=== PATIENT | female | born 1950 | race Caucasian/White ===

== ENCOUNTER 2017-09-08 21:03 | Inpatient (IN) | payer MEDICARE, OTHER ==
[2017-09-08] MEDS ORDERED: Nitroglycerin 0.4 MG TAB (25 Tab Bottle) ONE (21:45)
[2017-09-08 21:50] LABS: #Basophils 0.1 thou/uL (0.0-0.2); #Lymphocytes 2.7 thou/uL (1.20-3.40); #Monocytes 0.6 thou/uL (0.11-0.59); #Neutrophils 4.1 thou/uL (1.40-6.50); %Eosinophils 0.1 % (0.0-10.0); %Lymphocytes 36.2 % (21.0-51.0); %Monocytes 7.9 % (0.0-10.0); %Neutrophils 54.9 % (42.0-75.0); Mean Corpuscular HGB CONC 32.7 g/dL (32.0-36.0); Mean Corpuscular Volume 88.9 fl (81.0-99.0); Mean Platelet Volume 6.9 fL (7.4-10.4); Platelet Count 319 thou/uL (130-400); RBC Distribution Width 13.4 % (11.5-14.5); Red Blood Cell (RBC) Count 4.13 mill/uL (4.20-5.40); White Blood Cell (WBC) Count 7.5 thou/uL (4.8-10.8)
--- NOTE | 2017-09-08 22:05 | RAD ---
PORTABLE CHEST: HISTORY: Chest pain and pressure. COMPARISON: 05/10/2008 FINDINGS: Heart size is enlarged. There are postop sternotomy changes. The lungs are clear of any infiltrativ e process. IMPRESSION: Cardiomegaly. No acute findings. POS: VERONICA
[2017-09-08 22:11] LABS: ALT (SGPT) 16 U/L (8-55); AST (SGOT) 40 U/L (5-34); Alkaline Phosphatase 77 U/L (40-150); Anion Gap 13 mmol/L (10-20); BUN (Urea Nitrogen) 17 mg/dL (9.8-20.1); Bilirubin, Total 0.2 mg/dL (0.2-1.2); CK (CPK) 148 U/L (29-168); Calc. Creatinine Clearance 0 mL/min (70-130); Calcium 10.4 mg/dL (7.8-10.44); Carbon Dioxide 26 mmol/L (23-31); Chloride 105 mmol/L (98-107); Estimated GFR-MDRD 67; Globulin 3.5 g/dL (2.4-3.5); Glucose 99 mg/dL (80-115); Lipase 31 U/L (8-78); Potassium 3.5 mmol/L (3.5-5.1); Protein, Total 7.5 g/dL (6.0-8.3); Sodium 140 mmol/L (136-145)
[2017-09-08 22:13] LABS: CKMB 2.5 ng/mL (0-6.6); Troponin I 0.015 ng/mL (< 0.028)
[2017-09-09] MEDS ORDERED: Aspirin 325 MG TAB PO SCH (00:45)
[2017-09-09 00:47] VITALS: BMI 37.4
[2017-09-09 01:05] LABS: Troponin I 0.034 ng/mL (< 0.028)
[2017-09-09] MEDS ORDERED: Calcium Carbonate 500 MG ChewTAB PO PRN (03:28)
[2017-09-09] MEDS ORDERED: Dextrose 5% in Water 1,000 ML IV PRN (03:28)
[2017-09-09] MEDS ORDERED: Ondansetron ODT 4 MG TAB PO PRN (03:28)
[2017-09-09] MEDS ORDERED: Ondansetron HCl/PF 4 MG/2 ML Vial IVP PRN (03:28)
[2017-09-09] MEDS ORDERED: Senokot 8.6 MG TAB PO PRN (03:28)
[2017-09-09] MEDS ORDERED: Milk Of Magnesia 30 ML UDCUP PO PRN (03:28)
[2017-09-09] MEDS ORDERED: Dextrose 50% Abboject 50 ML SYRINGE SLOW IVP PRN (03:28)
[2017-09-09] MEDS: Levothyroxine Sodium 75 MCG TAB PO SCH (04:06)
--- NOTE | 2017-09-09 04:27 | HP ---
DATE OF ADMISSION: 09/09/2017 PRIMARY CARE PHYSICIAN: Dr. Chand at [facility]. PRIMARY CURAM DEVELOPER: Dr. Figueroa. CHIEF COMPLAINT: Chest discomfort. HISTORY OF PRESENT ILLNESS: Patient is a 66-year-old female with coronary artery disease, status pos t CABG and stent placement, hypertension, diabetes mellitus type 2, and hyperlipidemia presented to [facility] emergency room with chest discomfort that started this morning when she woke up. The chest pain w as substernal, constant, moderate in intensity associated with nausea and lightheadedness. No palpit ations, syncope, diaphoresis reported. The pain was radiating to her left shoulder. The pain improv ed after 2 nitroglycerin by EMS. She denies recent immobilization, travel, or sick contacts. No cou gh or heartburn reported. She follows Dr. Figueroa. PAST MEDICAL HISTORY: 1. Hypertension. 2. Diabetes mellitus, type 2. 3. Coronary artery disease, status post CABG and stent placement. She is currently followed by Dr. Figueroa. 4. Reactive airway disease. 5. Migraine headaches. 6. Hyperlipidemia. 7. Hypothyroidism. Patient has not been taking levothyroxine for the last 2 weeks per patient repor . 8. Obesity with a BMI 37.4. 9. Bipolar disorder. PAST SURGICAL HISTORY: 1. CABG. 2. Coronary stent placement. 3. Hysterectomy. 4. Appendectomy. 5. Cholecystectomy. ALLERGIES: Patient is allergic to MORPHINE. CURRENT HOME MEDICATIONS: Patient does not remember any of her home medications. We will try to obt ain the accurate list of medications from her PCP. SOCIAL HISTORY: Patient currently lives at home. She is . No alcohol, tobacco, or drug use . 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 She is FULL [employer], makes her own decision with help of her family. FAMILY HISTORY: Negative for premature coronary artery disease. REVIEW OF SYSTEMS: The following complete review of systems was negative, unless otherwise mentioned in the HPI or below: Constitutional: Weight loss or gain, ability to conduct usual activities. Sk in: Rash, itching. Eyes: Double vision, pain. ENT/Mouth: Nose bleeding, neck stiffness, pain, te nderness. Cardiovascular: Palpitations, dyspnea on exertion, orthopnea. Respiratory: Shortness of breath, wheezing, cough, hemoptysis, fever, or night sweats. Gastrointestinal: Poor appetite, abdo kam pain, heartburn, nausea, vomiting, constipation, or diarrhea. Genitourinary: Urgency, frequen cy, dysuria, nocturia. Musculoskeletal: Pain, swelling. Neurologic/Psychiatric: Anxiety, depressi on. Allergy/Immunologic: Skin rash, bleeding tendency. PHYSICAL EXAMINATION: VITAL SIGNS: In the emergency room showed temperature 98.3, respirations 18, pulse rate of 87, blood pressure of 181/98 with O2 saturation 95% on room air. GENERAL: A 66-year-old female in no apparent distress, chest discomfort has improved. HEENT: Head atraumatic, normocephalic. Sclerae anicteric. Moist mucous membranes. No oral lesion. NECK: Supple, no JVD appreciated. No carotid bruit. LUNGS: Clear to auscultation bilaterally. HEART: S1, S2 present. Regular rate and rhythm. Healed midline scar from previous CABG. ABDOMEN: Soft, nontender, bowel sounds present. There is mild epigastric tenderness which is chroni c per patient report. EXTREMITIES: Trace edema in bilateral lower extremities. SKIN: Warm and dry. LYMPH NODES: No palpable lymph nodes in the neck. PERIPHERAL VASCULAR: Radial pulses palpable bilaterally. MUSCULOSKELETAL: No joint swelling or tenderness. LABORATORY FINDINGS: 1. CBC showed WBC 7.5 with hemoglobin 12, platelet 319. 2. Troponin was 0.015. Repeat troponin was 0.034. 3. BNP was 48.6, creatinine 0.84, sodium was 140 with potassium 3.5. 4. EKG by my review showed sinus rhythm with some nonspecific ST-T wave changes. 5. Chest x-ray by my review was negative for infiltrate or edema. There was cardiomegaly. IMPRESSION: 1. Chest discomfort associated with nausea, radiating to her left shoulder. The chest discomfort re solved after nitroglycerin. Patient will be monitored on telemetry unit. Cardiology will be consult ed. Please note that patient has discontinued taking aspirin which will be restarted. We will mariana nue Plavix, which she takes at home. We will confirm all other home medications. 2. Hypertension, uncontrolled. Probably secondary to medication noncompliance. She had an echocard iogram [address] Figueroa's office. We will try to obtain records. We will add p.r.n. antih ypertensives. 3. Diabetes mellitus, type 2. We will start insulin sliding scale and confirm other home medication s. 4. Hypothyroidism. Patient states that she has not taken her thyroid medications over the last 2 we eks. We will resume once dosages are confirmed. 5. Bipolar disorder. 6. Obesity with a BMI 37.4. 7. Hyperlipidemia. 8. Coronary artery disease, status post coronary artery bypass graft and stent placement. Plan of care was discussed with the patient in detail. She stated understanding.
[2017-09-09 04:34] LABS: Troponin I 0.027 ng/mL (< 0.028)
[2017-09-09] MEDS: Carbidopa/Levodopa 25-100 mg Tablet PO SCH ×3 (08:30→21:08)
[2017-09-09] MEDS: Metoprolol Tartrate 50 MG TAB PO SCH (08:30)
[2017-09-09] MEDS: Hydrochlorothiazide 25 MG TAB PO SCH (08:30)
[2017-09-09] MEDS: Potassium Chloride 10 MEQ TAB PO SCH (08:30)
[2017-09-09] MEDS: lamoTRIgine 100 MG TAB PO SCH (08:30)
[2017-09-09] MEDS: Venlafaxine HCl XR 150 MG CAP PO SCH (08:31)
[2017-09-09] MEDS: Atorvastatin Calcium 40 MG TAB PO SCH (08:31)
[2017-09-09] MEDS: Aripiprazole 10 MG TAB PO SCH (08:31)
[2017-09-09] MEDS: Lisinopril 20 MG TAB PO SCH (08:31)
[2017-09-09] MEDS: Aspirin 81 mg Enteric Coated Tablet PO SCH (08:31)
[2017-09-09] MEDS: Fenofibrate Nanocrystallized 145 MG TAB PO SCH (08:32)
[2017-09-09] MEDS: Docusate 100 MG CAP PO SCH ×2 (08:32→21:09)
[2017-09-09] MEDS ORDERED: Famotidine 20 MG TAB PO SCH (09:00)
[2017-09-09] MEDS ORDERED: Isosorbide Dinitrate 20 MG TAB PO SCH (09:00)
[2017-09-09] MEDS ORDERED: Nitroglycerin 0.4 MG TAB (25 Tab Bottle) ONE (10:04)
[2017-09-09] MEDS ORDERED: Nitroglycerin 2% Ointment 1 INCH/1 GM Packet ONE (10:04)
[2017-09-09] MEDS ORDERED: Metoprolol Tartrate 5 MG/5 ML VIAL ONE ×2 (10:05)
[2017-09-09] MEDS: Nitroglycerin 0.4 MG TAB (25 Tab Bottle) PO PRN ×3 (10:08→10:23)
[2017-09-09] MEDS: Clopidogrel Bisulfate 75 MG TAB PO SCH (10:25)
[2017-09-09] MEDS: Acetaminophen 325 MG TAB PO PRN ×2 (10:25→14:01)
[2017-09-09 11:18] LABS: CKMB 1.9 ng/mL (0-6.6); Troponin I 0.015 ng/mL (< 0.028)
[2017-09-09] MEDS ORDERED: Nitroglycerin 50 MG/250 ML BOT 250 ML ONE (11:25)
--- NOTE | 2017-09-09 11:55 | CON ---
DATE OF CONSULTATION: 09/09/2017 HISTORY: The patient is a 66-year-old woman who presents with chest discomfort. The patient has a l kenyatta history of coronary artery disease. She is status post coronary bypass surgery on 2 occasions in 2000 and 2009. The patient is followed by Dr. Ulysses Figueroa. She was in her usual state of health wh en she woke up with substernal chest discomfort. When she woke with substernal chest discomfort, the chest discomfort radiated into her jaw and her left arm. This chest discomfort was improved with ni tro, but never resolved. The patient states she has continued to have chest discomfort. PAST MEDICAL HISTORY: 1. Coronary artery disease. 2. Hypertension. 3. Diabetes mellitus. 4. Chronic obstructive pulmonary disease. 5. Hyperlipidemia. 6. Parkinson's disease. PAST SURGICAL HISTORY: Coronary bypass surgery, history of appendectomy, cholecystectomy, hysterecto my. ALLERGIES: She is allergic to MORPHINE. MEDICATIONS: See nursing list. SOCIAL HISTORY: Nonsmoker. PHYSICAL EXAMINATION: GENERAL: This is an obese woman. VITAL SIGNS: Blood pressure 190/80. NECK: Showed no jugular venous. LUNGS: Clear to auscultation. HEART: Regular rate and rhythm, normal S1, S2. ABDOMEN: Distended. EXTREMITIES: Showed trace edema. SKIN: Warm and dry. NEUROLOGIC: Nonfocal. VASCULAR: Nonfocal. LABORATORY DATA: Sodium 140, potassium 3.5, chloride 105, bicarbonate 26, BUN 17, creatinine 0.84. Troponin was 0.027. BNP is 48. EKG revealed normal sinus rhythm with a normal ECG. IMPRESSION: 1. Unstable angina. 2. Hypertensive crisis. 3. History of coronary bypass surgery on 2 occasions. 4. Hypertension. This patient presents with unstable angina and hypertensive crisis. We will treat with IV nitroglyce rin. We will follow this patient with you through her hospitalization. This is a critical care note. Time is 40 minutes.
--- NOTE | 2017-09-09 12:57 | CON ---
DATE OF CONSULTATION: 09/09/2017 This is a 66-year-old female who presented to the hospital with chest pain of several hours duration. Anterior chest pain with radiation to the left neck. She had persistent pain this morning on observa tion unit. She was transferred to the ICU after apparently Cardiology saw her. She was given 2 nitroglycerin tablets. She is going to be started on IV nitroglycerin. The patient has never smoked. There is a strong family history of coronary disease. She denied any coughing or wheezing. PAST MEDICAL HISTORY: 1. Pertinent for diabetes. 2. Hypertension. 3. Coronary artery disease. 4. Hypothyroidism. 5. Parkinson disease. 6. Bipolar disorder. PAST SURGICAL HISTORY: She has had CABG done x2. She has a cardiac stent placed. Hysterectomy, rosetta endix, gallbladder. ALLERGIES: MORPHINE. MEDICATIONS: A list of medicine from home includes metformin 1000 mg twice a day, Lamotrigine 200 mg once a day, venlafaxine 300 mg once a day, Artane 1 mg twice a day, Ranexa 1000 mg twice a day, Prot noble 40, metoprolol 1 a day, Synthroid 75 a day. ISMO 30 a day, insulin Levemir 60 units twice a day , Plavix 75, carbidopa 2 tablets 3 times a day, calcium 80 and Abilify 5 mg a day. 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 REVIEW OF SYSTEMS: Otherwise, 10 point negative. PHYSICAL EXAMINATION: VITAL SIGNS: Sats are 93 on 3 liters, pulse 76, temperature 98, blood pressure 180/90. CHEST: Decreased breath sounds without any wheezing. CARDIAC: Normal S1, S2, no gallops. ABDOMEN: Soft, no masses. LABORATORY AND X-RAY FINDINGS: Glucose 186. Troponin was 0.03. EKG as noted shows some tachycardia. Some T-wave changes of lateral ischemic changes. Chest x-ray, no acute infiltrates. Previous sternotomy scar. White count of 7.5, H&H 12 and 36. Creatinine is normal. IMPRESSION: 1. Chest pain. 2. Coronary artery disease. 3. Status post coronary artery bypass graft. 4. Status post stent. 5. Parkinson's disease. 6. Depression. 7. Bipolar disorder. 8. Nonsmoker. 9. Hypothyroidism. PLAN: At this stage, await input from Cardiology. Pulmonary will follow while in the [facility]. Pulmona ry cobb nothing to offer. We will follow while in the ICU. This is a consultation note, 70 minutes, 50% spent in direct patient care.
--- NOTE | 2017-09-09 14:37 | EKG ---
Test Reason : Blood Pressure : / mmHG Vent. Rate : 078 BPM Atrial Rate : 078 BPM P-R Int : 118 ms QRS Dur : 080 ms QT Int : 394 ms P-R-T Axes : 000 030 085 degrees QTc Int : 449 ms Sinus rhythm with Premature atrial complexes Nonspecific T wave abnormality Abnormal ECG When compared with ECG of 08-SEP-2017 21:17, (Unconfirmed) No significant change was found Confirmed by DR. Lucy QUINTANA ([id number]) on 09/09/2017 2:37:24 PM Referred By: TUNG Confirmed By:DR. Lucy QIUNTANA
--- NOTE | 2017-09-09 14:41 | PDOC.PN ---
- Subjective Encounter Start Date: 09/09/17 Encounter Start Time: 07:45 Subjective: c/o chest pain, has sob+ -: no palp or fever -: has dry cough+ - Objective MAR Reviewed: Yes Vital Signs & Weight: Vital Signs (12 hours) Temp 09/09/17 12:00 97.9 F Most Recent Monitor Data Heart Rate from ECG 67 NIBP 144/68 NIBP BP-Mean 96 Respiration from ECG 21 SpO2 99 Result Diagrams: 09/08/17 21:25 09/08/17 21:25 Phys Exam - Physical Examination HEENT: PERRLA, moist MMs Neck: no JVD, supple Respiratory: no wheezing, no rales rhonchi+ Cardiovascular: RRR, no significant murmur Gastrointestinal: soft, non-tender, no distention, positive bowel sounds Musculoskeletal: no edema, pulses present Neurological: non-focal, moves all 4 limbs Psychiatric: normal affect, A&O x 3 Dx/Plan (1) Unstable angina Status: Acute (2) CAD (coronary artery disease) Code(s): I25.10 - ATHSCL HEART DISEASE OF [place] CORONARY ARTERY W/O ANG PCTRS Status: Chronic Qualifiers: Coronary Disease-Associated Artery/Lesion type: bypass graft [place] vs. transplanted heart: [place] heart Associated angina: with unstable angina Qualified Code(s): I25.700 - Atherosclerosis of coronary artery bypass graft(s) , unspecified, with unstable angina pectoris (3) HTN (hypertension) Code(s): I10 - ESSENTIAL (PRIMARY) HYPERTENSION Status: Chronic Qualifiers: Hypertension type: essential hypertension Qualified Code(s): I10 - Essential (primary) hypertension (4) Dyslipidemia Code(s): E78.5 - HYPERLIPIDEMIA, UNSPECIFIED Status: Chronic (5) Obesity (BMI 30-39.9) Code(s): E66.9 - OBESITY, UNSPECIFIED Status: Chronic (6) Parkinson disease Code(s): G20 - PARKINSON'S DISEASE Status: Chronic - Plan is on nitroglycerin drip -: morphine prn -: on asp, plavix, lipitor, tricor, toprol, ranexa, lisinopril -: sinemet, abilify, lamictal and effexor -: tx to ccu, await prior records from 's office * . Review of Systems - Medications/Allergies Allergies/Adverse Reactions: Allergies Allergy/AdvReac Type Severity Reaction Status Date / Time morphine Allergy Verified 09/09/17 00:50 Medications: Current Medications Acetaminophen (Tylenol) 650 mg PO Q4H PRN PRN Reason: Fever or Mild Pain Last Admin: 09/09/17 14:01 Dose: 650 mg Aripiprazole (Abilify) 5 mg PO DAILY [facility] Last Admin: 09/09/17 08:31 Dose: 5 mg Aspirin (Ecotrin) 81 mg PO DAILY [facility] Last Admin: 09/09/17 08:31 Dose: 81 mg Atorvastatin Calcium (Lipitor) 80 mg PO DAILY [facility] Last Admin: 09/09/17 08:31 Dose: 80 mg Calcium Carbonate (Tums) 1,000 mg PO Q4H PRN PRN Reason: Heartburn or Indigestion Carbidopa/Levodopa (Sinemet 25-100) 2 tab PO TID [facility] Last Admin: 09/09/17 14:01 Dose: 2 tab Clopidogrel Bisulfate (Plavix) 75 mg PO DAILY [facility] Last Admin: 09/09/17 10:25 Dose: 75 mg Dextrose/Water (Dextrose 50%) 25 gm SLOW IVP PRN PRN PRN Reason: Hypoglycemia Docusate Sodium (Colace) 100 mg PO BID [facility] Last Admin: 09/09/17 08:32 Dose: 100 mg Fenofibrate (Tricor) 145 mg PO DAILY [facility] Last Admin: 09/09/17 08:32 Dose: 145 mg Glucagon (Glucagon) 1 mg IM PRN PRN PRN Reason: Hypoglycemia Hydrochlorothiazide (Hydrochlorothiazide) 25 mg PO DAILY [facility] Last Admin: 09/09/17 08:30 Dose: 25 mg Dextrose/Water (D5w) 1,000 mls @ 0 mls/hr IV .Q0M PRN; As Directed PRN Reason: Hypoglycemia Nitroglycerin/Dextrose (Nitroglycerin 50 Mg/250 Ml Bot) 250 mls @ 0 mls/hr IVPB INF [facility]; As Directed PRN Reason: Protocol Insulin Human Regular (Humulin R) 0 units SC .MODERATE SLIDING SC PRN PRN Reason: Moderate Correctional Scale Insulin Human Regular (Humulin R) 0 units SC .BEDTIME SLIDING SC PRN PRN Reason: Bedtime Correctional Scale Lamotrigine (Lamictal) 200 mg PO DAILY [facility] Last Admin: 09/09/17 08:30 Dose: 200 mg Levothyroxine Sodium (Synthroid) 75 mcg PO 0600 [facility] Last Admin: 09/09/17 04:06 Dose: 75 mcg Lisinopril (Zestril) 20 mg PO DAILY [facility] Last Admin: 09/09/17 08:31 Dose: 20 mg Magnesium Hydroxide (Milk Of Magnesium) 30 ml PO DAILYPRN PRN PRN Reason: Constipation Metoprolol Tartrate (Lopressor) 50 mg PO DAILY [facility] Last Admin: 09/09/17 08:30 Dose: 50 mg Nitroglycerin (Nitrostat) 0.4 mg PO Q5MIN PRN PRN Reason: Chest Pain Last Admin: 09/09/17 10:23 Dose: 0.4 mg Ondansetron HCl (Zofran Odt) 4 mg PO Q6H PRN PRN Reason: Nausea/Vomiting Last Admin: 09/09/17 10:32 Dose: 4 mg Ondansetron HCl (Zofran) 4 mg IVP Q6H PRN PRN Reason: Nausea/Vomiting Pantoprazole Sodium (Protonix) 40 mg PO DAILY [facility] Last Admin: 09/09/17 08:32 Dose: 40 mg Trihexyphenidyl [ (Artane] 1 Mg) 0 each PO BID [facility] Potassium Chloride (Klor-Con 10) 10 meq PO DAILY [facility] Last Admin: 09/09/17 08:30 Dose: 10 meq Ranolazine (Ranexa) 1,000 mg PO BID [facility] Last Admin: 09/09/17 08:31 Dose: 1,000 mg Senna (Senokot) 2 tab PO HSPRN PRN PRN Reason: Constipation Sodium Chloride (Flush - Normal Saline) 10 ml IVF PRN PRN PRN Reason: Saline Flush Venlafaxine HCl (Effexor Xr) 300 mg PO DAILY [facility] Last Admin: 09/09/17 08:31 Dose: 300 mg
[2017-09-09] MEDS: Insulin Regular 300 UNITS/3 ML VIAL SC PRN ×2 (16:38→21:09)
[2017-09-10] MEDS: Acetaminophen 325 MG TAB PO PRN ×2 (01:05→05:04)
[2017-09-10] MEDS: Nitroglycerin 50 MG/250 ML BOT 250 ML IVPB SCH ×2 (04:49→17:19)
[2017-09-10] MEDS: Levothyroxine Sodium 75 MCG TAB PO SCH (05:04)
--- NOTE | 2017-09-10 05:30 | PRG ---
DATE OF SERVICE: 09/10/2017 She is awake, alert, responsive. No chest pain. She has some back pain. PHYSICAL EXAMINATION: VITAL SIGNS: Blood pressure is better 125/67, sats 90 on room air, respirations 18. CHEST: Chest revealed no wheezing or crackles. CARDIAC: Normal S1, S2, no gallops. ABDOMEN: Soft, no masses. IMPRESSION: 1. Coronary artery disease. 2. Chest pain. 3. History of Parkinson disease. 4. Hypertension. Pulmonary Critical Care will follow while in the ICU. Await input from Cardiology. Otherwise, suppo rtive care.
[2017-09-10] MEDS: Insulin Regular 300 UNITS/3 ML VIAL SC PRN ×4 (06:18→20:49)
[2017-09-10] MEDS: Atorvastatin Calcium 40 MG TAB PO SCH (09:28)
[2017-09-10] MEDS: Aripiprazole 10 MG TAB PO SCH (09:28)
[2017-09-10] MEDS: Carbidopa/Levodopa 25-100 mg Tablet PO SCH ×3 (09:28→20:30)
[2017-09-10] MEDS: Docusate 100 MG CAP PO SCH ×2 (09:29→20:30)
[2017-09-10] MEDS: ALPRAZolam 0.25 MG TAB PO SCH ×3 (09:29→20:30)
[2017-09-10] MEDS: Aspirin 81 mg Enteric Coated Tablet PO SCH (09:29)
[2017-09-10] MEDS: Lisinopril 20 MG TAB PO SCH (09:29)
[2017-09-10] MEDS: Hydrochlorothiazide 25 MG TAB PO SCH (09:30)
[2017-09-10] MEDS: Potassium Chloride 10 MEQ TAB PO SCH (09:30)
[2017-09-10] MEDS: Metoprolol Tartrate 50 MG TAB PO SCH (09:30)
[2017-09-10] MEDS: Clopidogrel Bisulfate 75 MG TAB PO SCH (09:30)
[2017-09-10] MEDS: lamoTRIgine 100 MG TAB PO SCH (09:37)
[2017-09-10] MEDS: Venlafaxine HCl XR 150 MG CAP PO SCH (09:43)
[2017-09-10] MEDS: Fenofibrate Nanocrystallized 145 MG TAB PO SCH (09:45)
--- NOTE | 2017-09-10 12:03 | PDOC.PN ---
- Subjective Encounter Start Date: 09/10/17 Encounter Start Time: 11:00 Subjective: no sob, feels better -: is on nitro drip and comfortable with no pain - Objective MAR Reviewed: Yes Vital Signs & Weight: Vital Signs (12 hours) Temp Pulse Resp BP Pulse Ox 09/10/17 09:29 141/85 H 09/10/17 08:00 98.2 F 84 23 H 99 09/10/17 04:00 98.2 F 09/10/17 03:36 98 Most Recent Monitor Data Heart Rate from ECG 82 NIBP 145/67 NIBP BP-Mean 120 Respiration from ECG 20 SpO2 97 I&O: 09/09/17 09/10/17 09/11/17 06:59 06:59 06:59 Intake Total 1186 150 Output Total 800 0 Balance 386 150 Result Diagrams: 09/08/17 21:25 09/08/17 21:25 Additional Labs: Accuchecks 09/10/17 09/10/17 09/09/17 11:20 06:19 21:04 POC Glucose 256 H 187 H 252 H 09/09/17 16:38 POC Glucose 183 H Phys Exam - Physical Examination HEENT: PERRLA, moist MMs Neck: no JVD, supple Respiratory: no wheezing, no rales Cardiovascular: RRR, no significant murmur Gastrointestinal: soft, non-tender, positive bowel sounds Musculoskeletal: no edema, pulses present Neurological: non-focal, moves all 4 limbs Psychiatric: normal affect, A&O x 3 Dx/Plan (1) Unstable angina Status: Acute Comment: resolving (2) CAD (coronary artery disease) Code(s): I25.10 - ATHSCL HEART DISEASE OF [place] CORONARY ARTERY W/O ANG PCTRS Status: Chronic Qualifiers: Coronary Disease-Associated Artery/Lesion type: bypass graft [place] vs. transplanted heart: [place] heart Associated angina: with unstable angina Qualified Code(s): I25.700 - Atherosclerosis of coronary artery bypass graft(s) , unspecified, with unstable angina pectoris (3) HTN (hypertension) Code(s): I10 - ESSENTIAL (PRIMARY) HYPERTENSION Status: Chronic Qualifiers: Hypertension type: essential hypertension Qualified Code(s): I10 - Essential (primary) hypertension (4) Dyslipidemia Code(s): E78.5 - HYPERLIPIDEMIA, UNSPECIFIED Status: Chronic (5) Obesity (BMI 30-39.9) Code(s): E66.9 - OBESITY, UNSPECIFIED Status: Chronic (6) Parkinson disease Code(s): G20 - PARKINSON'S DISEASE Status: Chronic - Plan still awaiting records from 's office, d/w RN -: is on nitro drip, may dc or taper if ok with -: continue asp, plavix, lipitor, tricor, ranexa, lisinopril and lopressor -: nebs prn, oob to chair as tolerated * . Review of Systems - Medications/Allergies Allergies/Adverse Reactions: Allergies Allergy/AdvReac Type Severity Reaction Status Date / Time morphine Allergy Verified 09/09/17 00:50 Medications: Current Medications Acetaminophen (Tylenol) 650 mg PO Q4H PRN PRN Reason: Fever or Mild Pain Last Admin: 09/10/17 05:04 Dose: 650 mg Alprazolam (Xanax) 0.25 mg PO TID [facility] Last Admin: 09/10/17 09:29 Dose: 0.25 mg Aripiprazole (Abilify) 5 mg PO DAILY [facility] Last Admin: 09/10/17 09:28 Dose: 5 mg Aspirin (Ecotrin) 81 mg PO DAILY [facility] Last Admin: 09/10/17 09:29 Dose: 81 mg Atorvastatin Calcium (Lipitor) 80 mg PO DAILY [facility] Last Admin: 09/10/17 09:28 Dose: 80 mg Calcium Carbonate (Tums) 1,000 mg PO Q4H PRN PRN Reason: Heartburn or Indigestion Carbidopa/Levodopa (Sinemet 25-100) 2 tab PO TID [facility] Last Admin: 09/10/17 09:28 Dose: 2 tab Clopidogrel Bisulfate (Plavix) 75 mg PO DAILY [facility] Last Admin: 09/10/17 09:30 Dose: 75 mg Dextrose/Water (Dextrose 50%) 25 gm SLOW IVP PRN PRN PRN Reason: Hypoglycemia Docusate Sodium (Colace) 100 mg PO BID [facility] Last Admin: 09/10/17 09:29 Dose: 100 mg Fenofibrate (Tricor) 145 mg PO DAILY [facility] Last Admin: 09/10/17 09:45 Dose: 145 mg Glucagon (Glucagon) 1 mg IM PRN PRN PRN Reason: Hypoglycemia Hydrochlorothiazide (Hydrochlorothiazide) 25 mg PO DAILY [facility] Last Admin: 09/10/17 09:30 Dose: 25 mg Dextrose/Water (D5w) 1,000 mls @ 0 mls/hr IV .Q0M PRN; As Directed PRN Reason: Hypoglycemia Nitroglycerin/Dextrose (Nitroglycerin 50 Mg/250 Ml Bot) 250 mls @ 0 mls/hr IVPB INF [facility]; As Directed PRN Reason: Protocol Last Admin: 09/10/17 04:49 Dose: 250 mls Insulin Human Regular (Humulin R) 0 units SC .MODERATE SLIDING SC PRN PRN Reason: Moderate Correctional Scale Last Admin: 09/10/17 11:21 Dose: 6 unit Insulin Human Regular (Humulin R) 0 units SC .BEDTIME SLIDING SC PRN PRN Reason: Bedtime Correctional Scale Last Admin: 09/09/17 21:09 Dose: 3 unit Isosorbide Mononitrate (Imdur) 60 mg PO DAILY [facility] Last Admin: 09/10/17 09:28 Dose: 60 mg Lamotrigine (Lamictal) 200 mg PO DAILY [facility] Last Admin: 09/10/17 09:37 Dose: 200 mg Levothyroxine Sodium (Synthroid) 75 mcg PO 0600 [facility] Last Admin: 09/10/17 05:04 Dose: 75 mcg Lisinopril (Zestril) 20 mg PO DAILY [facility] Last Admin: 09/10/17 09:29 Dose: 20 mg Magnesium Hydroxide (Milk Of Magnesium) 30 ml PO DAILYPRN PRN PRN Reason: Constipation Metoprolol Tartrate (Lopressor) 50 mg PO DAILY [facility] Last Admin: 09/10/17 09:30 Dose: 50 mg Nitroglycerin (Nitrostat) 0.4 mg PO Q5MIN PRN PRN Reason: Chest Pain Last Admin: 09/09/17 10:23 Dose: 0.4 mg Ondansetron HCl (Zofran Odt) 4 mg PO Q6H PRN PRN Reason: Nausea/Vomiting Last Admin: 09/09/17 10:32 Dose: 4 mg Ondansetron HCl (Zofran) 4 mg IVP Q6H PRN PRN Reason: Nausea/Vomiting Pantoprazole Sodium (Protonix) 40 mg PO DAILY [facility] Last Admin: 09/10/17 09:29 Dose: 40 mg Trihexyphenidyl [ (Artane] 1 Mg) 0 each PO BID [facility] Potassium Chloride (Klor-Con 10) 10 meq PO DAILY [facility] Last Admin: 09/10/17 09:30 Dose: 10 meq Ranolazine (Ranexa) 1,000 mg PO BID [facility] Last Admin: 09/10/17 09:45 Dose: 1,000 mg Senna (Senokot) 2 tab PO HSPRN PRN PRN Reason: Constipation Sodium Chloride (Flush - Normal Saline) 10 ml IVF PRN PRN PRN Reason: Saline Flush Venlafaxine HCl (Effexor Xr) 300 mg PO DAILY [facility] Last Admin: 09/10/17 09:43 Dose: 300 mg
[2017-09-11] MEDS: Levothyroxine Sodium 75 MCG TAB PO SCH (05:21)
[2017-09-11] MEDS: Insulin Regular 300 UNITS/3 ML VIAL SC PRN ×3 (05:28→18:17)
[2017-09-11] MEDS: Aspirin 81 mg Enteric Coated Tablet PO SCH (08:23)
[2017-09-11] MEDS: Docusate 100 MG CAP PO SCH ×2 (08:23→20:54)
[2017-09-11] MEDS: Clopidogrel Bisulfate 75 MG TAB PO SCH (08:23)
[2017-09-11] MEDS: Aripiprazole 10 MG TAB PO SCH (08:24)
[2017-09-11] MEDS: Hydrochlorothiazide 25 MG TAB PO SCH (08:24)
[2017-09-11] MEDS: Atorvastatin Calcium 40 MG TAB PO SCH (08:24)
[2017-09-11] MEDS: Carbidopa/Levodopa 25-100 mg Tablet PO SCH ×3 (08:25→20:53)
[2017-09-11] MEDS: Potassium Chloride 10 MEQ TAB PO SCH (08:25)
[2017-09-11] MEDS: Metoprolol Tartrate 50 MG TAB PO SCH (08:26)
[2017-09-11] MEDS: Lisinopril 20 MG TAB PO SCH (08:26)
[2017-09-11] MEDS: ALPRAZolam 0.25 MG TAB PO SCH ×3 (08:27→20:53)
[2017-09-11] MEDS: lamoTRIgine 100 MG TAB PO SCH (08:27)
[2017-09-11] MEDS: Venlafaxine HCl XR 150 MG CAP PO SCH (08:47)
[2017-09-11] MEDS: Fenofibrate Nanocrystallized 145 MG TAB PO SCH (08:48)
--- NOTE | 2017-09-11 11:25 | PDOC.PN ---
- Subjective Encounter Start Date: 09/11/17 Encounter Start Time: 10:45 Subjective: no chest pain now, feels better -: no sob or palp -: is on tapering nitro drip - Objective MAR Reviewed: Yes Vital Signs & Weight: Vital Signs (12 hours) Temp BP 09/11/17 08:26 129/74 09/11/17 04:00 98.1 F 09/11/17 00:00 98.2 F Weight Weight 194 lb 0.108 oz Most Recent Monitor Data Heart Rate from ECG 79 NIBP 140/66 NIBP BP-Mean 115 Respiration from ECG 14 SpO2 98 I&O: 09/10/17 09/11/17 09/12/17 06:59 06:59 06:59 Intake Total 1366 1192 130 Output Total 800 1300 Balance 566 -108 130 Result Diagrams: 09/08/17 21:25 09/08/17 21:25 Additional Labs: Accuchecks 09/11/17 09/10/17 09/10/17 05:29 20:39 17:15 POC Glucose 205 H 268 H 181 H 09/10/17 11:20 POC Glucose 256 H Phys Exam - Physical Examination HEENT: PERRLA, moist MMs Neck: no JVD, supple Respiratory: no wheezing, no rales Cardiovascular: RRR, no significant murmur Gastrointestinal: soft, non-tender, positive bowel sounds Musculoskeletal: no edema, pulses present Neurological: non-focal, moves all 4 limbs Psychiatric: normal affect, A&O x 3 Dx/Plan (1) Unstable angina Status: Acute Comment: resolving (2) CAD (coronary artery disease) Code(s): I25.10 - ATHSCL HEART DISEASE OF [place] CORONARY ARTERY W/O ANG PCTRS Status: Chronic Qualifiers: Coronary Disease-Associated Artery/Lesion type: bypass graft [place] vs. transplanted heart: [place] heart Associated angina: with unstable angina Qualified Code(s): I25.700 - Atherosclerosis of coronary artery bypass graft(s) , unspecified, with unstable angina pectoris (3) HTN (hypertension) Code(s): I10 - ESSENTIAL (PRIMARY) HYPERTENSION Status: Chronic Qualifiers: Hypertension type: essential hypertension Qualified Code(s): I10 - Essential (primary) hypertension (4) Dyslipidemia Code(s): E78.5 - HYPERLIPIDEMIA, UNSPECIFIED Status: Chronic (5) Obesity (BMI 30-39.9) Code(s): E66.9 - OBESITY, UNSPECIFIED Status: Chronic (6) Parkinson disease Code(s): G20 - PARKINSON'S DISEASE Status: Chronic - Plan prior records from 's have arrived and reviewed -: last stress test in 2017, no reversible ischemia -: may taper and dc nitro drip if ok with -: is on optimal oral cardiac meds, see below -: may tx to tele if ok with cardio * . Review of Systems - Medications/Allergies Allergies/Adverse Reactions: Allergies Allergy/AdvReac Type Severity Reaction Status Date / Time morphine Allergy Verified 09/09/17 00:50 Medications: Current Medications Acetaminophen (Tylenol) 650 mg PO Q4H PRN PRN Reason: Fever or Mild Pain Last Admin: 09/10/17 05:04 Dose: 650 mg Alprazolam (Xanax) 0.25 mg PO TID [facility] Last Admin: 09/11/17 08:27 Dose: 0.25 mg Aripiprazole (Abilify) 5 mg PO DAILY [facility] Last Admin: 09/11/17 08:24 Dose: 5 mg Aspirin (Ecotrin) 81 mg PO DAILY [facility] Last Admin: 09/11/17 08:23 Dose: 81 mg Atorvastatin Calcium (Lipitor) 80 mg PO DAILY [facility] Last Admin: 09/11/17 08:24 Dose: 80 mg Calcium Carbonate (Tums) 1,000 mg PO Q4H PRN PRN Reason: Heartburn or Indigestion Carbidopa/Levodopa (Sinemet 25-100) 2 tab PO TID [facility] Last Admin: 09/11/17 08:25 Dose: 2 tab Clopidogrel Bisulfate (Plavix) 75 mg PO DAILY [facility] Last Admin: 09/11/17 08:23 Dose: 75 mg Dextrose/Water (Dextrose 50%) 25 gm SLOW IVP PRN PRN PRN Reason: Hypoglycemia Docusate Sodium (Colace) 100 mg PO BID [facility] Last Admin: 09/11/17 08:23 Dose: 100 mg Fenofibrate (Tricor) 145 mg PO DAILY [facility] Last Admin: 09/11/17 08:48 Dose: 145 mg Glucagon (Glucagon) 1 mg IM PRN PRN PRN Reason: Hypoglycemia Hydrochlorothiazide (Hydrochlorothiazide) 25 mg PO DAILY [facility] Last Admin: 05/10/18 08:24 Dose: 25 mg Dextrose/Water (D5w) 1,000 mls @ 0 mls/hr IV .Q0M PRN; As Directed PRN Reason: Hypoglycemia Nitroglycerin/Dextrose (Nitroglycerin 50 Mg/250 Ml Bot) 250 mls @ 0 mls/hr IVPB INF ROSA MARIA; As Directed PRN Reason: Protocol Last Admin: 09/10/17 17:19 Dose: 250 mls Insulin Human Regular (Humulin R) 0 units SC .MODERATE SLIDING SC PRN PRN Reason: Moderate Correctional Scale Last Admin: 09/11/17 05:28 Dose: 4 unit Insulin Human Regular (Humulin R) 0 units SC .BEDTIME SLIDING SC PRN PRN Reason: Bedtime Correctional Scale Last Admin: 09/10/17 20:49 Dose: 3 unit Isosorbide Mononitrate (Imdur) 120 mg PO DAILY [facility] Last Admin: 09/11/17 08:25 Dose: 120 mg Lamotrigine (Lamictal) 200 mg PO DAILY [facility] Last Admin: 09/11/17 08:27 Dose: 200 mg Levothyroxine Sodium (Synthroid) 75 mcg PO 0600 [facility] Last Admin: 09/11/17 05:21 Dose: 75 mcg Lisinopril (Zestril) 20 mg PO DAILY [facility] Last Admin: 09/11/17 08:26 Dose: 20 mg Magnesium Hydroxide (Milk Of Magnesium) 30 ml PO DAILYPRN PRN PRN Reason: Constipation Metoprolol Tartrate (Lopressor) 50 mg PO DAILY [facility] Last Admin: 09/11/17 08:26 Dose: 50 mg Nitroglycerin (Nitrostat) 0.4 mg PO Q5MIN PRN PRN Reason: Chest Pain Last Admin: 09/09/17 10:23 Dose: 0.4 mg Ondansetron HCl (Zofran Odt) 4 mg PO Q6H PRN PRN Reason: Nausea/Vomiting Last Admin: 09/09/17 10:32 Dose: 4 mg Ondansetron HCl (Zofran) 4 mg IVP Q6H PRN PRN Reason: Nausea/Vomiting Pantoprazole Sodium (Protonix) 40 mg PO DAILY [facility] Last Admin: 09/11/17 08:26 Dose: 40 mg Trihexyphenidyl [ (Artane] 1 Mg) 0 each PO BID [facility] Potassium Chloride (Klor-Con 10) 10 meq PO DAILY [facility] Last Admin: 09/11/17 08:25 Dose: 10 meq Ranolazine (Ranexa) 1,000 mg PO BID [facility] Last Admin: 09/11/17 08:47 Dose: 1,000 mg Senna (Senokot) 2 tab PO HSPRN PRN PRN Reason: Constipation Sodium Chloride (Flush - Normal Saline) 10 ml IVF PRN PRN PRN Reason: Saline Flush Venlafaxine HCl (Effexor Xr) 300 mg PO DAILY [facility] Last Admin: 09/11/17 08:47 Dose: 300 mg
[2017-09-11] MEDS: TRIHEXYPHENIDYL PO SCH ×2 (19:58→19:59)
[2017-09-12] MEDS: Levothyroxine Sodium 75 MCG TAB PO SCH (05:15)
[2017-09-12] MEDS ORDERED: Lisinopril 20 MG TAB PO SCH (09:00)
[2017-09-12] MEDS ORDERED: Metoprolol Tartrate 50 MG TAB PO SCH (09:00)
[2017-09-12] MEDS: Clopidogrel Bisulfate 75 MG TAB PO SCH (09:30)
[2017-09-12] MEDS: Aspirin 81 mg Enteric Coated Tablet PO SCH (09:30)
[2017-09-12] MEDS: Docusate 100 MG CAP PO SCH (09:30)
[2017-09-12] MEDS: ALPRAZolam 0.25 MG TAB PO SCH ×2 (09:30→14:43)
[2017-09-12] MEDS: Carbidopa/Levodopa 25-100 mg Tablet PO SCH ×2 (09:30→14:43)
[2017-09-12] MEDS: Fenofibrate Nanocrystallized 145 MG TAB PO SCH (09:30)
[2017-09-12] MEDS: Hydrochlorothiazide 25 MG TAB PO SCH (09:30)
[2017-09-12] MEDS: Aripiprazole 10 MG TAB PO SCH (09:30)
[2017-09-12] MEDS: Atorvastatin Calcium 40 MG TAB PO SCH (09:30)
[2017-09-12] MEDS: Venlafaxine HCl XR 150 MG CAP PO SCH (09:31)
[2017-09-12] MEDS: lamoTRIgine 100 MG TAB PO SCH (09:31)
[2017-09-12] MEDS: Potassium Chloride 10 MEQ TAB PO SCH (09:31)
[2017-09-12 09:33] LABS: CKMB 2.9 ng/mL (0-6.6); Troponin I 0.012 ng/mL (< 0.028)
[2017-09-12 14:43] VITALS: BP 102/59; TEMP 97.8
--- NOTE | 2017-09-12 15:07 | PDOC.PN ---
- Subjective Encounter Start Date: 09/12/17 Encounter Start Time: 08:15 Subjective: no sob, feels better -: had chest pain this am but refused later to have cath - Objective MAR Reviewed: Yes Vital Signs & Weight: Vital Signs (12 hours) Temp Pulse Resp BP BP Pulse Ox 09/12/17 14:41 97.8 F 65 16 102/59 L 92 L 09/12/17 11:59 98 F 82 16 123/61 91 L 09/12/17 08:12 98.7 F 98 18 91 L 09/12/17 08:10 98.7 F 98 18 146/80 H 91 L 09/12/17 04:00 98.1 F 80 14 151/79 H 94 L Weight Weight 192 lb 6.4 oz Most Recent Monitor Data Heart Rate from ECG 70 NIBP 137/68 NIBP BP-Mean 105 Respiration from ECG 22 SpO2 100 I&O: 09/11/17 09/12/17 09/13/17 06:59 06:59 06:59 Intake Total 1192 1928 Output Total 1300 1850 Balance -108 78 Result Diagrams: 09/08/17 21:25 09/08/17 21:25 Additional Labs: Accuchecks 09/11/17 17:09 POC Glucose 198 H Phys Exam - Physical Examination HEENT: PERRLA, moist MMs Neck: no JVD, supple Respiratory: no wheezing, no rales Cardiovascular: RRR, no significant murmur Gastrointestinal: soft, non-tender, positive bowel sounds Musculoskeletal: no edema, pulses present Neurological: non-focal, moves all 4 limbs Psychiatric: normal affect, A&O x 3 Dx/Plan (1) Unstable angina Status: Resolved (2) CAD (coronary artery disease) Code(s): I25.10 - ATHSCL HEART DISEASE OF [place] CORONARY ARTERY W/O ANG PCTRS Status: Chronic Qualifiers: Coronary Disease-Associated Artery/Lesion type: bypass graft [place] vs. transplanted heart: [place] heart Associated angina: with unstable angina Qualified Code(s): I25.700 - Atherosclerosis of coronary artery bypass graft(s) , unspecified, with unstable angina pectoris (3) HTN (hypertension) Code(s): I10 - ESSENTIAL (PRIMARY) HYPERTENSION Status: Chronic Qualifiers: Hypertension type: essential hypertension Qualified Code(s): I10 - Essential (primary) hypertension (4) Dyslipidemia Code(s): E78.5 - HYPERLIPIDEMIA, UNSPECIFIED Status: Chronic (5) Obesity (BMI 30-39.9) Code(s): E66.9 - OBESITY, UNSPECIFIED Status: Chronic (6) Parkinson disease Code(s): G20 - PARKINSON'S DISEASE Status: Chronic - Plan was npo with ongoing chest pain, she has refused to have cath done today -: d/w , dc pt home -: is optimized on multiple cardiac meds -: to f/u with in 2 weeks and pcp in 1 week. -: to check BP and pulse twice daily and record to f/u with pcp * .
--- NOTE | 2017-09-12 21:44 | DIS ---
DATE OF ADMISSION: 09/09/2017 DATE OF DISCHARGE: 09/12/2017 DISCHARGE DISPOSITION: To home. PRIMARY DISCHARGE DIAGNOSIS: Unstable angina. SECONDARY DISCHARGE DIAGNOSES: Coronary artery disease with prior coronary artery bypass graft x2, h ypertension, dyslipidemia, obesity, Parkinson disease. PROCEDURES DONE DURING HOSPITALIZATION: Chest x-ray done on the day of admission showed cardiomegaly with no acute findings. H and H 12 and 36, platelet count 319,000. Second set of troponin was 0.03 . Further 4 sets were negative. CK-MB 2.9, troponin I 0.01 this morning. BNP 48. DISCHARGE MEDICATIONS: Abilify 5 mg p.o. daily, aspirin 81 mg p.o. daily, Plavix 75 mg p.o. daily, L ipitor 80 mg p.o. daily, carbidopa/levodopa 25/100 mg 2 tablets p.o. 3 times daily, Colace 100 mg p.o . daily, fenofibrate 145 mg p.o. daily, hydrochlorothiazide 25 mg p.o. daily, NovoLog sliding scale b efore meals, Levemir 30 units subcu daily, Imdur 120 mg p.o. daily, lamotrigine extended release 200 mg p.o. daily, levothyroxine 75 mcg p.o. daily, lisinopril 20 mg twice daily, Lopressor 100 mg p.o. d aily, Protonix 40 mg daily, potassium chloride 10 mEq p.o. daily, Ranexa 1000 mg p.o. twice daily, tr ihexyphenidyl 1 mg p.o. twice daily, venlafaxine extended release 300 mg p.o. daily. ALLERGIES: MORPHINE. INPATIENT CONSULT: Dr. Johnson for Cardiology. DISCHARGE PLAN: Patient is to follow up with Dr. Figueroa, her bleach supervisor in 2 weeks and primary car e physician in 1 week. BRIEF COURSE DURING HOSPITALIZATION: Patient initially got admitted on the with complaints of ch est pain. Her second set of cardiac enzymes were indeterminate. The patient has known history of co ronary artery disease and was on maximal medications. She has had CABG done twice and a stent placem ent as well before. In view of this history and ongoing chest pain, the patient was admitted to [facility] for possible unstable angina. She also had uncontrolled hypertension on admission and was plac ed on nitroglycerin drip in ICU. She was evaluated by Dr. Johnson. The patient's medications were further optimized during her stay here. She was kept n.p.o. This morning as she complained of chest pain. In view of maximal medical therapy, the patient had complained of chest pain and was asked to undergo cardiac catheterization, but patient refused the same. Her chest pain completely got resolv ed. She had one set of troponin and CK-MB done this morning which was negative. She has remained he modynamically stable and will be shortly discharged home. She needs to follow up with Dr. Fgiueroa in 2 weeks, her bleach supervisor. Please see a face to face documentation on [facility] for the day of discha rge.
== END 2017-09-12 16:18 | disposition home or self-care (01) | DRG 303 ==
LOC: ERS 21:03 → 2SW 22:30 → OBSVTOIN 09-09 10:57 → CCU 09-09 11:26 → 2NO 09-11 15:56
PROVIDERS: ADMIT Internal Medicine; ATTEND Internal Medicine
DX: I25.110 Atherosclerotic heart disease of native coronary artery with unstable angina pectoris (principal); Z95.1 Presence of aortocoronary bypass graft; I10 Essential (primary) hypertension; E78.5 Hyperlipidemia, unspecified; E66.9 Obesity, unspecified; G20 Parkinson's disease; E11.9 Type 2 diabetes mellitus without complications; E03.9 Hypothyroidism, unspecified; Z68.37 Body mass index [BMI] 37.0-37.9, adult; F31.9 Bipolar disorder, unspecified
CPT/HCPCS: 36415; 36416; 71045; 80053; 82553; 83690; 83880; 84484; 85025; 93005; 93010; 94640; 94660; 94760; 96360; 96361; J1815; J7620; Q0162

== ENCOUNTER 2017-12-10 07:44 | Inpatient (IN) | payer MEDICARE, OTHER ==
[2017-12-10 08:15] LABS: #Lymphocytes 1.1 thou/uL (1.20-3.40); #Monocytes 0.5 thou/uL (0.11-0.59); #Neutrophils 5.4 thou/uL (1.40-6.50); %Basophils 0.2 % (0.0-1.0); %Eosinophils 0.1 % (0.0-10.0); %Lymphocytes 15.3 % (21.0-51.0); %Monocytes 7.3 % (0.0-10.0); %Neutrophils 77.1 % (42.0-75.0); Hemoglobin 10.2 g/dL (12.0-16.0); Mean Corpuscular HGB CONC 31.9 g/dL (32.0-36.0); Mean Corpuscular Hemoglobin 29.2 pg (27.0-31.0); Mean Corpuscular Volume 91.4 fL (78.0-98.0); Mean Platelet Volume 7.3 fL (7.4-10.4); Platelet Count 243 thou/uL (130-400); RBC Distribution Width 15.9 % (11.5-14.5); White Blood Cell (WBC) Count 6.9 thou/uL (4.8-10.8)
[2017-12-10 08:42] LABS: ALT (SGPT) 7 U/L (8-55); AST (SGOT) 27 U/L (5-34); Albumin 3.8 g/dL (3.4-4.8); Alkaline Phosphatase 59 U/L (40-150); Anion Gap 14 mmol/L (10-20); BUN (Urea Nitrogen) 40 mg/dL (9.8-20.1); Bilirubin, Total 0.6 mg/dL (0.2-1.2); Calc. Creatinine Clearance 0 mL/min (70-130); Calcium 10.3 mg/dL (7.8-10.44); Carbon Dioxide 21 mmol/L (23-31); Chloride 108 mmol/L (98-107); Estimated GFR-MDRD 55; Globulin 3.3 g/dL (2.4-3.5); Glucose 174 mg/dL (80-115); Potassium 4.2 mmol/L (3.5-5.1); Protein, Total 7.1 g/dL (6.0-8.3); Sodium 139 mmol/L (136-145)
[2017-12-10 10:39] LABS: Bilirubin Negative (Negative); Blood, Urine Negative (Negative); Clarity CLEAR (Clear); Glucose, Urine (Dipstick) 250 mg/dL (Negative); Leukocyte Trace (Negative); Nitrite Negative (Negative); Protein, Urine (Dipstick) 30 mg/dL (Neg-Trace); Specific Gravity, Urine 1.023 (1.002-1.036); Urobilinogen 0.2 mg/dL (0.2-1.0)
[2017-12-10 10:42] LABS: Bacteria/HPF None Seen HPF (None Seen); Hyaline Casts/LPF 4-6 HYALINE CAST LPF (0-3 Hyaline); Pathc Cast-AUWi Flag 1.45 (0-2.49); RBC/HPF 0-3 HPF (0-3); Squamous Epithelial 0-3 HPF (0-3); WBC/HPF 0-3 HPF (0-3)
[2017-12-10 11:03] LABS: Crystals/HPF 1+ AMORPH URATES HPF (Negative); Renal Epithelial None Seen HPF (0-3); Transitional Epithelial NONE SEEN HPF (0-3)
[2017-12-10] MEDS ORDERED: Furosemide 40 MG/4 ML VIAL ONE (12:36)
--- NOTE | 2017-12-10 13:10 | CT ---
CT BRAIN WITHOUT CONTRAST: HISTORY: Altered mental status. COMPARISON: 05/10/2008 FINDINGS: No evidence of acute infarct, hemorrhage, midline shift, or abnormal extraaxial fluid collections is seen. The ventricular size is appropriate, and the basilar cisterns are patent. The bony calvarium is intact. The visualized paranasal sinuses and mastoid air cells are well aerated. IMPRESSION: No CT evidence of acute intracranial process. POS: OFF
--- NOTE | 2017-12-10 13:25 | RAD ---
CHEST ONE VIEW: Comparison: 09-08-16 History: Dyspnea. Bradycardia. FINDINGS: Stable sternotomy changes. Persistent cardiomegaly and atherosclerosis. The pulmonary vessels and hil um are normal. Costophrenic angles are clear. Chronic obscuration of the left hemidiaphragm. No conso lidation or masses. No pneumothorax or osseous abnormality. IMPRESSION: 1. Atherosclerosis. 2. Cardiomegaly. 3. Chronic changes left lung base. POS: C
[2017-12-10 13:38] LABS: CKMB 4.4 ng/mL (0-6.6); Troponin I 0.016 ng/mL (< 0.028)
[2017-12-10] MEDS ORDERED: Benzonatate 100 MG CAP PO PRN (13:51)
[2017-12-10] MEDS ORDERED: Diabetic Tussin 200 MG/10 ML UDCUP PO PRN (13:51)
[2017-12-10] MEDS ORDERED: Acetaminophen 325 MG TAB PO PRN (13:51)
[2017-12-10] MEDS ORDERED: Senokot 8.6 MG TAB PO PRN ×2 (13:51)
[2017-12-10] MEDS ORDERED: Mag-Al 1200 mg/1200 mg/30 ML UDCUP PO PRN (13:51)
[2017-12-10] MEDS ORDERED: Calcium Carbonate 500 MG ChewTAB PO PRN (13:51)
[2017-12-10] MEDS ORDERED: Ondansetron HCl/PF 4 MG/2 ML Vial IVP PRN (13:51)
[2017-12-10] MEDS ORDERED: Nitroglycerin 0.4 MG TAB (25 Tab Bottle) SL PRN (13:51)
[2017-12-10] MEDS ORDERED: Bisacodyl 5 MG TAB PO PRN ×2 (13:51)
[2017-12-10] MEDS ORDERED: cloNIDine 0.1 MG TAB PO PRN (13:51)
[2017-12-10] MEDS ORDERED: hydrALAZINE 20 MG/ML VIAL SLOW IVP PRN (13:51)
[2017-12-10] MEDS ORDERED: Loratadine 10 MG TAB PO PRN (13:51)
[2017-12-10] MEDS ORDERED: traMADol HCl 50 MG TAB PO PRN (13:51)
[2017-12-10] MEDS ORDERED: Dextrose 50% Abboject 50 ML SYRINGE SLOW IVP PRN (13:57)
[2017-12-10] MEDS ORDERED: Dextrose 5% in Water 1,000 ML IV PRN (13:57)
[2017-12-10] MEDS ORDERED: HumaLOG 300 UNITS/3 ML VIAL SC PRN ×2 (13:57)
--- NOTE | 2017-12-10 14:25 | CT ---
CT ANGIO CHEST: INDICATIONS: Dyspnea. TECHNIQUE: Multiple axial tomograms obtained through the chest following pulmonary angio protocol with multiplan ar reconstruction and 3D post processing. FINDINGS: The pulmonary arteries show adequate opacification. No evidence of pulmonary embolus identified. Review of the lung freeman show chronic lung parenchymal changes. There is stranding in the lung base s. Streaky atelectasis in both lung bases. There is vascular engorgement and interstitial prominenc e, which could represent mild edema. No confluent consolidation or significant effusion. Nonspecifi c mediastinal lymph nodes. There is a paratracheal lymph node, measuring 2 cm. Images through the u pper abdomen are unremarkable. IMPRESSION: 1. No evidence of pulmonary embolus. 2. Cardiomegaly and vascular congestion, as described. POS: RAHEEM
[2017-12-10] MEDS ORDERED: ISOVUE-370 76%-LOCM 1 ML ONE (15:14)
--- NOTE | 2017-12-10 15:41 | PDOC.EVN ---
Event Note - Event Note Event Note: XCalled the numbers provided for Pt;s son .no reply at both numbers. Pt listed son as MPOA> Nothing in chart from [facility].Will presume as Full code untill further clarified.
[2017-12-10 15:50] VITALS: BMI 39.1
--- NOTE | 2017-12-10 16:04 | HP ---
PRIMARY CARE PHYSICIAN: Dr. Ar Chand at [facility]. CHIEF COMPLAINT: Low blood sugars, sinus bradycardia and hypothermia. HISTORY OF PRESENT ILLNESS: Ms. Washington is a 67-year-old female with past medical history of diabete s mellitus, dyslipidemia and hypertension who is currently a resident of [facility] as well as history of coronary artery disease status post CABG, presented [facility] because of low blood sugars. History is mainly obtained by discussing with the emergency room phys nghiaan as the patient see exhibiting some memory issues, possibly some dementia and is not able to pro vide much history. She does report that she has been noticing increased falls. She last fell about 4 weeks ago and repo rts that she broke her ankle. I am not sure why she was sent to the emergency room as I was not given much information about that. She was found to be hypoglycemic upon presentation reportedly. Her blood sugar was reportedly as lo w as 20 or 30s upon presentation. She was also found to be hypothermic with a temperature initially of 94 degrees requiring Lena Hugger. She was found to be bradycardic with a heart rate in the 40s. Blood pressure was 184/103. She came to the emergency room with the sitter. The sitter is not in th e room right now. She underwent a chest x-ray and CT scan of the brain which was unremarkable. Her heart rate improved to 60s. Reportedly, she got one dose of atropine by the EMS. She was resuscitated with some IV fluids in the emergency room and according to the ER physician, dev eloped some respiratory distress. For this, she received 1 dose of IV Lasix and underwent a CT angio of the thorax. It is negative for any pulmonary embolism, but showed cardiomegaly and vascular susanna estion. She is now being admitted for further evaluation and care. Her laboratory examination other cobb is unremarkable and she is not exhibiting any signs and symptoms of sepsis. The patient denies any other recent illnesses at this time. She denies any nausea, vomiting, diarrhe a, abdominal pain. She denies any dysuria, frequency, urgency. She denies any chest pain or shortne ss of breath. The patient is not a reliable historian as she keeps digressing a lot, but was not abl e to answer the questions directly. She kept hung up on discussing the dosages of her medications an d kept repeating herself and kept giving different dosages for her Levemir and insulin. I feel the p attika has underlying dementia related to Parkinson's disease which has not been worked up as yet. PAST MEDICAL HISTORY: 1. Coronary artery disease status post CABG, her primary substitute school nurse is Dr. Ulysses Figueroa at [facility]. 2. Hypertension. 3. Diabetes mellitus type 2. 4. Reactive airway disease. 5. Migraine headaches. 6. Dyslipidemia. 7. Hypothyroidism. 8. Obesity. 9. Bipolar disorder. 10. Parkinson's disease with tremors. PAST SURGICAL HISTORY: 1. CABG. 2. Coronary stent placement. 3. Hysterectomy. 4. Appendectomy. 5. Cholecystectomy. ALLERGIES: The patient is allergic to MORPHINE. SOCIAL HISTORY: She is currently living at [facility]. 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 No alcohol, drug or tobacco abuse. CODE STATUS: Presumed FULL CODE. I did discuss the code status with the patient, but she exhibited significant tangential thinking and was not able to my question directly. She reports that her son messi quintana lives in [place] is the medical power of sports attorney. FAMILY HISTORY: No family history of premature coronary disease or stroke as per the EMR. HOME MEDICATIONS: As listed in the emergency room record; metoprolol/hydrochlorothiazide 50/25 mg da imelda, levothyroxine 75 mg daily, Abilify 5 mg at bedtime, venlafaxine 150 mg 2 capsules daily, metform in 500 mg 2 tablets in the morning, 2 tablets in the evening, lamotrigine 200 mg daily, lisinopril 20 mg daily, Protonix 40 mg daily, Ranexa 1000 mg b.i.d., Plavix 75 mg daily, potassium chloride 10 mEq daily, carbidopa/levodopa 25/100 two tabs 3 times a day, isosorbide dinitrate 30 mg daily, Levemir 6 0 units b.i.d., NovoLog FlexPen sliding scale, atorvastatin 80 mg daily, and fenofibric acid 145 mg d aily. LABORATORY DATA AND IMAGING DATA: CBC shows WBC 6.9 with 77% neutrophils, hemoglobin 10.2. Serum ch emistry; BUN 40, creatinine normal at 1, GFR 55, blood sugar most recent 113. Cardiac enzymes within normal limits. BNP 879. Urinalysis shows glucosuria, proteinuria, trace leukocyte esterase. Chest x-ray by my review shows pulmonary vascular congestion. CT scan of the brain is negative for any ac deniz hemorrhage or infarction. CT angio negative for pulmonary embolism and showed vascular congestio n. PHYSICAL EXAMINATION: VITAL SIGNS: Upon presentation to the emergency room, blood pressure 135/66, pulse of 50, respiratio ns 14, afebrile, saturating 96% on room air. GENERAL: She is in no acute distress, awake, alert, oriented x3, though appears tangential thinking and confusion at times regarding her home medications etc, follows simple commands. HEENT: Mucous membrane is dry. No oropharyngeal exudate or erythema. Head is normocephalic, atraum atic. Pupils equal, reactive to light and accommodation. Extraocular movement is intact. NECK: Supple without any lymphadenopathy, JVD or bruit. CHEST: Clear to auscultation without any wheezing, rales or rhonchi. Rhythm is regular without any murmur, rubs or gallops. ABDOMEN: Soft, nontender, nondistended, positive bowel sounds. EXTREMITIES: Show trace pitting edema bilaterally without any cyanosis or clubbing. NEUROLOGIC: Examination is largely nonfocal. The patient is able to answer simple questions, but no t directly. She is able to follow simple commands. SKIN: Free of any rashes or bruises. Feels warm and dry to touch. PSYCHIATRIC: Normal affect. IMPRESSION AND PLAN: 1. Hypoglycemia, suspect inadvertent use of medications, likely extra insulin. The patient is a hig h risk for repetition of the same episode. At this time, her blood sugar has improved and we will ho ld her home medications and put her on insulin sliding scale and monitor carefully. No evidence to s uggest any infection at this time. The patient will be evaluated by OT/PT for possible rehab placeme nt and possible placement in assisted living facility instead of independent living facility to preve nt reoccurrence of these symptoms. 2. Hypothermia and bradycardia, both have resolved for now. They both are secondary to #1. We will monitor. 3. History of coronary artery disease status post coronary artery bypass grafting. We will resume h ome medications once confirmed. We will restart her beta cristofer, tim inhibitor, aspirin, Plavix, an d Ranexa. Patient is currently asymptomatic. 4. Fluid overload. The patient has received Lasix in the emergency room and is feeling much better. We will continue supplemental oxygen and repeat the Lasix as necessary. Put her on nebulizers as n eeded. 5. Hypertension. We will restart home medication once confirmed including the beta cristofer, TIM inh ibitor. 6. History of Parkinson's disease. Restart carbidopa/levodopa. 7. Diabetes mellitus. Once again, we will use insulin sliding scale for now. 8. Dyslipidemia. Restart atorvastatin, fenofibric acid. 9. Code status: Presumed FULL for now. We will try to contact the family, her son for discussion o f the code status as she reports the son is the medical power of sports attorney. 10. Deep venous thrombosis and gastrointestinal prophylaxis. DISPOSITION: Ms. Washington is currently being admitted to the hospital with hypoglycemia, hypothermia and sinus bradycardia. She will be on the telemetry bed. Estimated length of stay at this time is a t least 2-3 midnights. Further management will depend upon her clinical course.
[2017-12-10 17:01] LABS: Troponin I 0.019 ng/mL (< 0.028)
[2017-12-10 19:51] LABS: Troponin I 0.022 ng/mL (< 0.028)
[2017-12-10] MEDS: Carbidopa/Levodopa 25-100 mg Tablet PO SCH ×2 (21:01→21:08)
[2017-12-10] MEDS: Atorvastatin Calcium 40 MG TAB PO SCH ×2 (21:02→21:10)
[2017-12-10] MEDS: Famotidine 20 MG TAB PO SCH (21:02)
[2017-12-11 05:32] LABS: #Lymphocytes 2.2 thou/uL (1.20-3.40); #Monocytes 0.8 thou/uL (0.11-0.59); #Neutrophils 4.9 thou/uL (1.40-6.50); %Basophils 0.5 % (0.0-1.0); %Eosinophils 0.1 % (0.0-10.0); %Monocytes 9.6 % (0.0-10.0); %Neutrophils 61.8 % (42.0-75.0); Hemoglobin 10.2 g/dL (12.0-16.0); Mean Corpuscular HGB CONC 32.5 g/dL (32.0-36.0); Mean Corpuscular Hemoglobin 29.2 pg (27.0-31.0); Mean Corpuscular Volume 89.9 fL (78.0-98.0); Platelet Count 267 thou/uL (130-400); RBC Distribution Width 15.9 % (11.5-14.5); Red Blood Cell (RBC) Count 3.48 mill/uL (4.20-5.40); White Blood Cell (WBC) Count 7.9 thou/uL (4.8-10.8)
[2017-12-11 05:43] LABS: Anion Gap 13 mmol/L (10-20); BUN (Urea Nitrogen) 26 mg/dL (9.8-20.1); Calc. Creatinine Clearance 101 mL/min (70-130); Calcium 9.8 mg/dL (7.8-10.44); Carbon Dioxide 24 mmol/L (23-31); Chloride 106 mmol/L (98-107); Estimated GFR-MDRD 73; Glucose 86 mg/dL (80-115); Potassium 3.4 mmol/L (3.5-5.1); Sodium 140 mmol/L (136-145)
[2017-12-11] MEDS ORDERED: Non-Formulary Item 1 EACH (Ranolazine [Ranexa] 1,000 MG) PO SCH (09:00)
[2017-12-11] MEDS ORDERED: Lisinopril 20 MG TAB PO SCH (09:00)
[2017-12-11] MEDS ORDERED: LAMOTRIGINE 200 MG PO SCH (09:00)
[2017-12-11] MEDS ORDERED: INSULIN ASPART 18 UNIT SC SCH (09:00)
[2017-12-11] MEDS ORDERED: FENOFIBRATE 145 MG PO SCH (09:00)
[2017-12-11] MEDS ORDERED: Non-Formulary Item 1 EACH (Potassium Chloride [Potassium Chloride] 10 MEQ) PO SCH (09:00)
[2017-12-11] MEDS ORDERED: LEVODOPA PO SCH (09:00)
[2017-12-11] MEDS ORDERED: Non-Formulary Item 1 EACH (Atorvastatin Calcium [Atorvastatin Calcium] 80 MG) PO SCH (09:00)
[2017-12-11] MEDS ORDERED: Clopidogrel Bisulfate 75 MG TAB PO SCH (09:00)
[2017-12-11] MEDS ORDERED: Metoprolol Tartrate 50 MG TAB PO SCH (09:00)
[2017-12-11] MEDS ORDERED: INSULIN ASPART 32 UNIT SC SCH (09:00)
[2017-12-11] MEDS ORDERED: ARIPIPRAZOLE 5 MG PO SCH (09:00)
[2017-12-11] MEDS ORDERED: CARBIDOPA PO SCH (09:00)
[2017-12-11] MEDS ORDERED: TRIHEXYPHENIDYL 2 MG PO SCH (09:00)
[2017-12-11] MEDS ORDERED: lamoTRIgine 100 MG TAB PO SCH (09:00)
[2017-12-11] MEDS ORDERED: Fenofibrate Nanocrystallized 145 MG TAB PO SCH (09:00)
[2017-12-11] MEDS: Lisinopril 20 MG TAB PO SCH ×2 (10:13→20:49)
[2017-12-11] MEDS: Fenofibrate Nanocrystallized 145 MG TAB PO SCH (10:24)
[2017-12-11] MEDS: Aripiprazole 10 MG TAB PO SCH (10:25)
[2017-12-11] MEDS: Clopidogrel Bisulfate 75 MG TAB PO SCH (10:25)
[2017-12-11] MEDS: Potassium Chloride 10 MEQ TAB PO SCH (10:27)
[2017-12-11] MEDS: Famotidine 20 MG TAB PO SCH ×2 (10:27→20:50)
[2017-12-11] MEDS: Aspirin 81 mg Enteric Coated Tablet PO SCH (10:27)
[2017-12-11] MEDS: Enoxaparin Sodium 40 MG/0.4 ML SYRINGE SC SCH (10:28)
[2017-12-11] MEDS: Docusate 100 MG CAP PO SCH (10:28)
[2017-12-11] MEDS: Venlafaxine HCl XR 150 MG CAP PO SCH (10:33)
--- NOTE | 2017-12-11 13:45 | PDOC.PN ---
- Subjective Encounter Start Date: 12/11/17 Encounter Start Time: 13:43 Subjective: feels much better. no new complaints -: enies any CP/SOB/F/C.no N/V/D/abd pain - Objective Resuscitation Status: Resuscitation Status FULL:Full Resuscitation MAR Reviewed: Yes Vital Signs & Weight: Vital Signs (12 hours) Temp Pulse Pulse Pulse Resp BP BP 12/11/17 12:00 98.2 F 77 20 12/11/17 10:28 147/88 H 12/11/17 10:13 147/88 H 12/11/17 10:08 80 88 182/75 H 12/11/17 08:00 97.5 F L 89 16 12/11/17 07:49 97.5 F L 89 16 12/11/17 04:37 181/75 H BP BP BP Pulse Ox 12/11/17 12:00 148/66 H 95 12/11/17 10:28 12/11/17 10:13 12/11/17 10:08 192/79 H 12/11/17 08:00 12/11/17 07:49 147/88 H 94 L 12/11/17 04:37 Weight Weight 201 lb I&O: 12/10/17 12/11/17 12/12/17 06:59 06:59 06:59 Intake Total 490 Output Total 4100 Balance -3610 Result Diagrams: 12/11/17 05:04 12/11/17 05:04 Additional Labs: Accuchecks 12/11/17 12/10/17 12/10/17 01:15 21:00 16:15 POC Glucose 78 78 112 H Laboratory Tests 12/10/17 12/10/17 12/10/17 07:57 10:01 11:07 POC Glucose 152 H 150 H 129 H Troponin I B-Natriuretic Peptide 12/10/17 12/10/17 12/10/17 12:33 13:04 13:05 POC Glucose 113 H Troponin I 0.016 B-Natriuretic Peptide 879.4 H 12/10/17 12/10/17 12/10/17 16:15 16:23 19:20 POC Glucose 112 H Troponin I 0.019 0.022 B-Natriuretic Peptide 12/10/17 12/11/17 21:00 01:15 POC Glucose 78 78 Troponin I B-Natriuretic Peptide labs reviewed Phys Exam - Physical Examination Constitutional: NAD weak and tired looking HEENT: PERRLA, moist MMs, sclera anicteric, oral pharynx no lesions Neck: no nodes, no JVD, supple, full ROM Respiratory: no wheezing, no rales, no rhonchi, clear to auscultation bilateral Cardiovascular: RRR, no significant murmur, no rub, gallop, irregular Gastrointestinal: soft, non-tender, no distention, positive bowel sounds Musculoskeletal: no edema, pulses present Neurological: non-focal, normal sensation, moves all 4 limbs Psychiatric: normal affect, A&O x 3 Skin: no rash Dx/Plan (1) Hypoglycemia Code(s): E16.2 - HYPOGLYCEMIA, UNSPECIFIED Status: Acute (2) Hypothermia Code(s): T68.XXXA - HYPOTHERMIA, INITIAL ENCOUNTER Status: Acute (3) Bradycardia Code(s): R00.1 - BRADYCARDIA, UNSPECIFIED Status: Acute (4) CAD (coronary artery disease) Code(s): I25.10 - ATHSCL HEART DISEASE OF [place] CORONARY ARTERY W/O ANG PCTRS Status: Chronic Qualifiers: Coronary Disease-Associated Artery/Lesion type: bypass graft [place] vs. transplanted heart: [place] heart Associated angina: with unstable angina Qualified Code(s): I25.700 - Atherosclerosis of coronary artery bypass graft(s) , unspecified, with unstable angina pectoris (5) Dyslipidemia Code(s): E78.5 - HYPERLIPIDEMIA, UNSPECIFIED Status: Chronic (6) HTN (hypertension) Code(s): I10 - ESSENTIAL (PRIMARY) HYPERTENSION Status: Chronic Qualifiers: Hypertension type: essential hypertension Qualified Code(s): I10 - Essential (primary) hypertension (7) Obesity (BMI 30-39.9) Code(s): E66.9 - OBESITY, UNSPECIFIED Status: Chronic (8) Parkinson disease Code(s): G20 - PARKINSON'S DISEASE Status: Chronic - Plan PT/OT, out of bed/ambulate, DVT proph w/SCDs hemodynamically stable.BS,BP,HR better. -: will restart Metoprolol at half dose.resume lisinopril,Isosorbide -: Cont to Hold metformin & levemir. restart Novolog & monitor -: discussed placement but pt worried about costs.CM consulted for SNU -: OK to transfer to medical * .Will need dose adjustment in Insulin based on blood sugars.Pt currently on high doses * risk of over medication as i suspect pt has onset of Dementia,either Alzheimer or related to parkinsons.Not ideal for her to live alone. 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 negative: fever, chills, sweats, other ENT: negative: Ear Pain, Ear Discharge, Nose Pain, Nose Discharge, Nose Congestion, Mouth Pain, Mouth Swelling, Throat Pain, Throat Swelling, Other Respiratory: negative: Cough, Dry, Shortness of Breath, Hemoptysis, SOB with Excertion, Pleuritic Pain, Sputum, Wheezing Cardiovascular: negative: chest pain, palpitations, orthopnea, paroxysmal nocturnal dyspnea, edema, light headedness, other Gastrointestinal: negative: Nausea, Vomiting, Abdominal Pain, Diarrhea, Constipation, Melena, Hematochezia, Other Genitourinary: negative: Dysuria, Frequency, Incontinence, Hematuria, Retention , Other Musculoskeletal: negative: Neck Pain, Shoulder Pain, Arm Pain, Back Pain, Hand Pain, Leg Pain, Foot Pain, Other Skin: negative: Rash, Lesions, James, Bruising, Other Neurological: negative: Weakness, Numbness, Incoordination, Change in Speech, Confusion, Seizures, Other - Medications/Allergies Allergies/Adverse Reactions: Allergies Allergy/AdvReac Type Severity Reaction Status Date / Time morphine Allergy Verified 09/09/17 00:50 Medications: Current Medications Acetaminophen (Tylenol) 650 mg PO Q4H PRN PRN Reason: Headache/Fever or Pain Al Hydroxide/Mg Hydroxide (Maalox) 30 ml PO Q6H PRN PRN Reason: Heartburn or Indigestion Albuterol/Ipratropium (Duoneb) 3 ml NEB [id number] PRN PRN Reason: SOB &/or Wheezing Aripiprazole (Abilify) 5 mg PO DAILY [facility] Last Admin: 12/11/17 10:25 Dose: 5 mg Aspirin (Ecotrin) 81 mg PO DAILY [facility] Last Admin: 12/11/17 10:27 Dose: 81 mg Atorvastatin Calcium (Lipitor) 80 mg PO HS [facility] Benzonatate (Tessalon) 100 mg PO Q4H PRN PRN Reason: Cough Bisacodyl (Dulcolax) 10 mg PO DAILYPRN PRN PRN Reason: Constipation Calcium Carbonate (Tums) 1,000 mg PO Q4H PRN PRN Reason: Heartburn or Indigestion Carbidopa/Levodopa (Sinemet 25-100) 2 tab PO TID [facility] Clonidine (Catapres) 0.1 mg PO Q4H PRN PRN Reason: Systolic BP > 160 Last Admin: 12/11/17 04:37 Dose: 0.1 mg Clopidogrel Bisulfate (Plavix) 75 mg PO DAILY [facility] Last Admin: 12/11/17 10:25 Dose: 75 mg Dextrose/Water (Dextrose 50%) 25 gm SLOW IVP PRN PRN PRN Reason: Hypoglycemia Docusate Sodium (Colace) 100 mg PO DAILY [facility] Last Admin: 12/11/17 10:28 Dose: 100 mg Enoxaparin Sodium (Lovenox) 40 mg SC 0900 [facility] Last Admin: 12/11/17 10:28 Dose: 40 mg Famotidine (Pepcid) 20 mg PO BID [facility] Last Admin: 12/11/17 10:27 Dose: 20 mg Fenofibrate (Tricor) 145 mg PO DAILY [facility] Last Admin: 12/11/17 10:24 Dose: 145 mg Glucagon (Glucagon) 1 mg IM PRN PRN PRN Reason: Hypoglycemia Guaifenesin (Robitussin Sf) 200 mg PO Q4H PRN PRN Reason: Cough Hydralazine HCl (Apresoline) 10 mg SLOW IVP Q4H PRN PRN Reason: Systolic BP > 170 Last Admin: 12/10/17 15:58 Dose: 10 mg Dextrose/Water (D5w) 1,000 mls @ 0 mls/hr IV .Q0M PRN PRN Reason: Hypoglycemia Insulin Human Lispro (Humalog) 0 units SC .MILD SLIDING SCALE PRN PRN Reason: Mild Correctional Scale Insulin Human Lispro (Humalog) 0 units SC .BEDTIME SLIDING SC PRN PRN Reason: Bedtime Correctional Scale Insulin Human Lispro (Humalog) 32 units SC 1730 [facility] Insulin Human Lispro (Humalog) 18 units SC DAILY-AC [facility] Isosorbide Mononitrate (Imdur) 120 mg PO DAILY [facility] Last Admin: 12/11/17 10:26 Dose: 120 mg Levothyroxine Sodium (Synthroid) 75 mcg PO HS [facility] Lisinopril (Zestril) 20 mg PO DAILY [facility] Last Admin: 12/11/17 10:28 Dose: Not Given Lisinopril (Zestril) 20 mg PO BID [facility] Last Admin: 12/11/17 10:13 Dose: 20 mg Loratadine (Claritin) 10 mg PO DAILYPRN PRN PRN Reason: Sinus Symptoms Metoprolol Tartrate (Lopressor) 50 mg PO BID [facility] Nitroglycerin (Nitrostat) 0.4 mg SL Q5MIN PRN PRN Reason: Chest Pain Ondansetron HCl (Zofran) 4 mg IVP Q6H PRN PRN Reason: Nausea/Vomiting Pantoprazole Sodium (Protonix) 40 mg PO DAILY [facility] Last Admin: 12/11/17 10:27 Dose: 40 mg Pantoprazole Sodium (Protonix) 40 mg PO DAILY [facility] Last Admin: 12/11/17 10:31 Dose: Not Given [Lamotrigine Xr] 200 (Mg) 0 each PO DAILY [facility] Potassium Chloride (Klor-Con 10) 10 meq PO DAILY [facility] Last Admin: 12/11/17 10:27 Dose: 10 meq Ranolazine (Ranexa) 1,000 mg PO BID [facility] Last Admin: 12/11/17 10:25 Dose: 1,000 mg Senna (Senokot) 2 tab PO HSPRN PRN PRN Reason: Constipation Sodium Chloride (Flush - Normal Saline) 10 ml IVF Q12HR [facility] Last Admin: 12/11/17 10:30 Dose: 10 ml Sodium Chloride (Flush - Normal Saline) 10 ml IVF PRN PRN PRN Reason: Saline Flush Last Admin: 12/10/17 16:05 Dose: 10 ml Tramadol HCl (Ultram) 50 mg PO Q4H PRN PRN Reason: Moderate Pain (4-6) Last Admin: 12/11/17 04:36 Dose: 50 mg Trihexyphenidyl HCl (Artane) 2 mg PO BID [facility] Last Admin: 12/11/17 10:29 Dose: Not Given Venlafaxine HCl (Effexor Xr) 300 mg PO DAILY [facility] Last Admin: 12/11/17 10:33 Dose: 300 mg
[2017-12-11] MEDS: Carbidopa/Levodopa 25-100 mg Tablet PO SCH ×2 (16:16→20:50)
[2017-12-11] MEDS ORDERED: HumaLOG 300 UNITS/3 ML VIAL SC SCH (17:30)
[2017-12-11] MEDS: HumaLOG 300 UNITS/3 ML VIAL SC SCH (17:54)
[2017-12-11] MEDS: Metoprolol Tartrate 50 MG TAB PO SCH (20:49)
[2017-12-11] MEDS: Atorvastatin Calcium 40 MG TAB PO SCH (20:50)
[2017-12-11] MEDS ORDERED: Levothyroxine Sodium 75 MCG TAB PO SCH (21:00)
[2017-12-12] MEDS: Levothyroxine Sodium 75 MCG TAB PO SCH (05:37)
[2017-12-12 06:03] LABS: Anion Gap 11 mmol/L (10-20); BUN (Urea Nitrogen) 22 mg/dL (9.8-20.1); Calc. Creatinine Clearance 92 mL/min (70-130); Calcium 9.5 mg/dL (7.8-10.44); Carbon Dioxide 25 mmol/L (23-31); Chloride 104 mmol/L (98-107); Estimated GFR-MDRD 68; Glucose 160 mg/dL (80-115); Potassium 4.2 mmol/L (3.5-5.1); Sodium 136 mmol/L (136-145)
[2017-12-12] MEDS ORDERED: HumaLOG 300 UNITS/3 ML VIAL SC SCH (07:30)
[2017-12-12] MEDS ORDERED: Temazepam 15 MG CAP PO PRN (07:38)
[2017-12-12] MEDS ORDERED: Eucerin (Mineral Oil/Petrolatum,White) 30 gm Jar TOP PRN (07:38)
[2017-12-12] MEDS ORDERED: Loperamide HCl 2 MG CAP PO PRN (07:38)
[2017-12-12] MEDS ORDERED: Chloraseptic Spray 180 ml Bottle PO PRN (07:38)
[2017-12-12] MEDS ORDERED: Artificial Tears 18 DROP/0.9 ML EA EYE PRN (07:38)
[2017-12-12] MEDS ORDERED: Ondansetron ODT 4 MG TAB PO PRN (07:38)
[2017-12-12] MEDS ORDERED: LAMOTRIGINE 200 MG PO SCH (09:00)
[2017-12-12] MEDS: Enoxaparin Sodium 40 MG/0.4 ML SYRINGE SC SCH (09:21)
[2017-12-12] MEDS: HumaLOG 300 UNITS/3 ML VIAL SC SCH ×2 (09:23→17:12)
[2017-12-12] MEDS: Aripiprazole 10 MG TAB PO SCH (09:25)
[2017-12-12] MEDS: Carbidopa/Levodopa 25-100 mg Tablet PO SCH ×4 (09:26→20:34)
[2017-12-12] MEDS: Aspirin 81 mg Enteric Coated Tablet PO SCH (09:26)
[2017-12-12] MEDS: Fenofibrate Nanocrystallized 145 MG TAB PO SCH (09:27)
[2017-12-12] MEDS: Clopidogrel Bisulfate 75 MG TAB PO SCH (09:27)
[2017-12-12] MEDS: Lisinopril 20 MG TAB PO SCH ×2 (09:27→20:35)
[2017-12-12] MEDS: Famotidine 20 MG TAB PO SCH ×2 (09:27→20:37)
[2017-12-12] MEDS: Docusate 100 MG CAP PO SCH (09:27)
[2017-12-12] MEDS: Metoprolol Tartrate 50 MG TAB PO SCH ×2 (09:28→20:36)
[2017-12-12] MEDS: Potassium Chloride 10 MEQ TAB PO SCH (09:28)
[2017-12-12] MEDS: Venlafaxine HCl XR 150 MG CAP PO SCH (09:28)
--- NOTE | 2017-12-12 11:47 | PDOC.PN ---
- Subjective Encounter Start Date: 12/12/17 Encounter Start Time: 07:30 Patient seen and examined. No new complaints. No overnight events - Objective Resuscitation Status: Resuscitation Status FULL:Full Resuscitation MAR Reviewed: Yes Vital Signs & Weight: Vital Signs (12 hours) Temp Pulse Resp BP BP BP Pulse Ox 12/12/17 11:34 98.3 F 73 18 135/60 94 L 12/12/17 10:22 165/72 H 12/12/17 08:00 98.3 F 79 18 152/69 H 95 12/12/17 07:50 98.3 F 79 18 12/12/17 04:00 97.7 F 73 18 144/68 H 96 Weight Weight 200 lb 3.2 oz I&O: 12/11/17 12/12/17 12/13/17 06:59 06:59 06:59 Intake Total 490 420 480 Output Total 4100 1100 Balance -3610 -680 480 Result Diagrams: 12/11/17 05:04 12/12/17 05:36 Additional Labs: Accuchecks 12/11/17 12/11/17 12/11/17 21:00 17:04 16:20 POC Glucose 180 H 171 H 168 H 12/11/17 10:43 POC Glucose 247 H EKG Reviewed by me: Yes (nsr) Phys Exam - Physical Examination Constitutional: NAD HEENT: PERRLA, moist MMs, sclera anicteric Neck: no JVD, supple Respiratory: no wheezing, no rales, no rhonchi Cardiovascular: RRR, no significant murmur, no rub Gastrointestinal: soft, non-tender, no distention, positive bowel sounds Musculoskeletal: no edema, pulses present Neurological: non-focal, normal sensation Lymphatic: no nodes Psychiatric: normal affect, A&O x 3 Skin: no rash, normal turgor Dx/Plan (1) Bradycardia Code(s): R00.1 - BRADYCARDIA, UNSPECIFIED Status: Resolved (2) Hypoglycemia associated with type 2 diabetes mellitus Code(s): E11.649 - TYPE 2 DIABETES MELLITUS WITH HYPOGLYCEMIA WITHOUT COMA Status: Resolved (3) Hypothermia Code(s): T68.XXXA - HYPOTHERMIA, INITIAL ENCOUNTER Status: Resolved (4) Anemia, normocytic normochromic Code(s): D64.9 - ANEMIA, UNSPECIFIED Status: Chronic (5) Anxiety and depression Code(s): F41.9 - ANXIETY DISORDER, UNSPECIFIED; F32.9 - MAJOR DEPRESSIVE DISORDER, SINGLE EPISODE, UNSPECIFIED Status: Chronic (6) CAD (coronary artery disease) Code(s): I25.10 - ATHSCL HEART DISEASE OF [place] CORONARY ARTERY W/O ANG PCTRS Status: Chronic Qualifiers: Coronary Disease-Associated Artery/Lesion type: bypass graft [place] vs. transplanted heart: [place] heart Associated angina: with unstable angina Qualified Code(s): I25.700 - Atherosclerosis of coronary artery bypass graft(s) , unspecified, with unstable angina pectoris (7) Dyslipidemia Code(s): E78.5 - HYPERLIPIDEMIA, UNSPECIFIED Status: Chronic (8) HTN (hypertension) Code(s): I10 - ESSENTIAL (PRIMARY) HYPERTENSION Status: Chronic Qualifiers: Hypertension type: essential hypertension Qualified Code(s): I10 - Essential (primary) hypertension (9) Obesity (BMI 30-39.9) Code(s): E66.9 - OBESITY, UNSPECIFIED Status: Chronic (10) Parkinson disease Code(s): G20 - PARKINSON'S DISEASE Status: Chronic - Plan cont current plan of care, PT/OT, social work msw * will do echo * tsh is normal * medication reviewed as below * supportive treatment. * will need placement Review of Systems - Review of Systems Eyes: negative: Pain, Vision Change, Conjunctivae Inflammation, Eyelid Inflammation, Redness, Other ENT: negative: Ear Pain, Ear Discharge, Nose Pain, Nose Discharge, Nose Congestion, Mouth Pain, Mouth Swelling, Throat Pain, Throat Swelling, Other Respiratory: negative: Cough, Dry, Shortness of Breath, Hemoptysis, SOB with Excertion, Pleuritic Pain, Sputum, Wheezing Cardiovascular: negative: chest pain, palpitations, orthopnea, paroxysmal nocturnal dyspnea, edema, light headedness, other Gastrointestinal: negative: Nausea, Vomiting, Abdominal Pain, Diarrhea, Constipation, Melena, Hematochezia, Other Genitourinary: negative: Dysuria, Frequency, Incontinence, Hematuria, Retention , Other Musculoskeletal: negative: Neck Pain, Shoulder Pain, Arm Pain, Back Pain, Hand Pain, Leg Pain, Foot Pain, Other Skin: negative: Rash, Lesions, James, Bruising, Other - Medications/Allergies Allergies/Adverse Reactions: Allergies Allergy/AdvReac Type Severity Reaction Status Date / Time morphine Allergy Verified 09/09/17 00:50 Medications: Current Medications Acetaminophen (Tylenol) 650 mg PO Q4H PRN PRN Reason: Headache/Fever or Pain Last Admin: 12/11/17 16:15 Dose: 650 mg Al Hydroxide/Mg Hydroxide (Maalox) 30 ml PO Q6H PRN PRN Reason: Heartburn or Indigestion Albuterol/Ipratropium (Duoneb) 3 ml NEB [id number] PRN PRN Reason: SOB &/or Wheezing Aripiprazole (Abilify) 5 mg PO DAILY [facility] Last Admin: 12/12/17 09:25 Dose: 5 mg Artificial Tears (Tears Naturale) 0 drop EA EYE PRN PRN PRN Reason: Dry Eyes Aspirin (Ecotrin) 81 mg PO DAILY [facility] Last Admin: 12/12/17 09:26 Dose: 81 mg Atorvastatin Calcium (Lipitor) 80 mg PO HS [facility] Last Admin: 12/11/17 20:50 Dose: 80 mg Benzonatate (Tessalon) 100 mg PO Q4H PRN PRN Reason: Cough Bisacodyl (Dulcolax) 10 mg PO DAILYPRN PRN PRN Reason: Constipation Calcium Carbonate (Tums) 1,000 mg PO Q4H PRN PRN Reason: Heartburn or Indigestion Carbidopa/Levodopa (Sinemet 25-100) 2 tab PO TID [facility] Last Admin: 12/12/17 09:26 Dose: 2 tab Clonidine (Catapres) 0.1 mg PO Q4H PRN PRN Reason: Systolic BP > 160 Last Admin: 12/11/17 04:37 Dose: 0.1 mg Clopidogrel Bisulfate (Plavix) 75 mg PO DAILY [facility] Last Admin: 12/12/17 09:27 Dose: 75 mg Dextrose/Water (Dextrose 50%) 25 gm SLOW IVP PRN PRN PRN Reason: Hypoglycemia Docusate Sodium (Colace) 100 mg PO DAILY [facility] Last Admin: 12/12/17 09:27 Dose: 100 mg Enoxaparin Sodium (Lovenox) 40 mg SC 0900 [facility] Last Admin: 12/12/17 09:21 Dose: 40 mg Famotidine (Pepcid) 20 mg PO BID [facility] Last Admin: 12/12/17 09:27 Dose: 20 mg Fenofibrate (Tricor) 145 mg PO DAILY [facility] Last Admin: 12/12/17 09:27 Dose: 145 mg Glucagon (Glucagon) 1 mg IM PRN PRN PRN Reason: Hypoglycemia Guaifenesin (Robitussin Sf) 200 mg PO Q4H PRN PRN Reason: Cough Hydralazine HCl (Apresoline) 10 mg SLOW IVP Q4H PRN PRN Reason: Systolic BP > 170 Last Admin: 12/10/17 15:58 Dose: 10 mg Dextrose/Water (D5w) 1,000 mls @ 0 mls/hr IV .Q0M PRN PRN Reason: Hypoglycemia Insulin Human Lispro (Humalog) 0 units SC .MILD SLIDING SCALE PRN PRN Reason: Mild Correctional Scale Insulin Human Lispro (Humalog) 0 units SC .BEDTIME SLIDING SC PRN PRN Reason: Bedtime Correctional Scale Insulin Human Lispro (Humalog) 10 units SC DAILY[facility] Last Admin: 12/12/17 09:23 Dose: 10 unit Insulin Human Lispro (Humalog) 10 units SC 1730 [facility] Last Admin: 12/11/17 17:54 Dose: 10 unit Isosorbide Mononitrate (Imdur) 120 mg PO DAILY [facility] Last Admin: 12/12/17 09:27 Dose: 120 mg Levothyroxine Sodium (Synthroid) 75 mcg PO 0600 [facility] Last Admin: 12/12/17 05:37 Dose: 75 mcg Lisinopril (Zestril) 20 mg PO BID [facility] Last Admin: 12/12/17 09:27 Dose: 20 mg Loperamide HCl (Imodium) 2 mg PO PRN PRN PRN Reason: Diarrhea/Loose Stools Loratadine (Claritin) 10 mg PO DAILYPRN PRN PRN Reason: Sinus Symptoms Metoprolol Tartrate (Lopressor) 50 mg PO BID [facility] Last Admin: 12/12/17 09:28 Dose: 50 mg Mineral Oil/White Petrolatum (Eucerin Cream) 0 gm TOP BIDPRN PRN PRN Reason: Dry Skin Nitroglycerin (Nitrostat) 0.4 mg SL Q5MIN PRN PRN Reason: Chest Pain Ondansetron HCl (Zofran) 4 mg IVP Q6H PRN PRN Reason: Nausea/Vomiting Ondansetron HCl (Zofran Odt) 4 mg PO Q6H PRN PRN Reason: Nausea/Vomiting Pantoprazole Sodium (Protonix) 40 mg PO DAILY [facility] Last Admin: 12/12/17 09:28 Dose: 40 mg Phenol (Chloraseptic [place] 180 Ml Bot) 0 ml PO PRN PRN PRN Reason: Sore Throat Potassium Chloride (Klor-Con 10) 10 meq PO DAILY [facility] Last Admin: 12/12/17 09:28 Dose: 10 meq Ranolazine (Ranexa) 1,000 mg PO BID [facility] Last Admin: 12/12/17 09:28 Dose: 1,000 mg Senna (Senokot) 2 tab PO HSPRN PRN PRN Reason: Constipation Sodium Chloride (Flush - Normal Saline) 10 ml IVF Q12HR [facility] Last Admin: 12/12/17 09:28 Dose: 10 ml Sodium Chloride (Flush - Normal Saline) 10 ml IVF PRN PRN PRN Reason: Saline Flush Last Admin: 12/10/17 16:05 Dose: 10 ml Temazepam (Restoril) 15 mg PO HSPRN PRN PRN Reason: Insomnia Tramadol HCl (Ultram) 50 mg PO Q4H PRN PRN Reason: Moderate Pain (4-6) Last Admin: 12/11/17 04:36 Dose: 50 mg Trihexyphenidyl HCl (Artane) 2 mg PO BID [facility] Last Admin: 12/11/17 23:28 Dose: Not Given Venlafaxine HCl (Effexor Xr) 300 mg PO DAILY [facility] Last Admin: 12/12/17 09:28 Dose: 300 mg
[2017-12-12] MEDS: Atorvastatin Calcium 40 MG TAB PO SCH (20:36)
[2017-12-13] MEDS: Levothyroxine Sodium 75 MCG TAB PO SCH (05:33)
[2017-12-13] MEDS: Lisinopril 20 MG TAB PO SCH ×2 (08:10→21:19)
[2017-12-13] MEDS: HumaLOG 300 UNITS/3 ML VIAL SC SCH ×2 (08:10→17:01)
[2017-12-13] MEDS: Fenofibrate Nanocrystallized 145 MG TAB PO SCH (08:11)
[2017-12-13] MEDS: Aripiprazole 10 MG TAB PO SCH (08:11)
[2017-12-13] MEDS: Famotidine 20 MG TAB PO SCH ×2 (08:12→21:19)
[2017-12-13] MEDS: Clopidogrel Bisulfate 75 MG TAB PO SCH (08:12)
[2017-12-13] MEDS: Aspirin 81 mg Enteric Coated Tablet PO SCH (08:12)
[2017-12-13] MEDS: Docusate 100 MG CAP PO SCH (08:12)
[2017-12-13] MEDS: Potassium Chloride 10 MEQ TAB PO SCH (08:12)
[2017-12-13] MEDS: Enoxaparin Sodium 40 MG/0.4 ML SYRINGE SC SCH (08:13)
[2017-12-13] MEDS: Metoprolol Tartrate 50 MG TAB PO SCH ×2 (08:13→21:19)
[2017-12-13] MEDS: Venlafaxine HCl XR 150 MG CAP PO SCH (10:43)
[2017-12-13] MEDS: Carbidopa/Levodopa 25-100 mg Tablet PO SCH ×3 (10:43→21:19)
--- NOTE | 2017-12-13 12:52 | PDOC.PN ---
- Subjective Encounter Start Date: 12/13/17 Encounter Start Time: 10:15 Patient seen and examined. No new complaints. No overnight events - Objective Resuscitation Status: Resuscitation Status FULL:Full Resuscitation MAR Reviewed: Yes Vital Signs & Weight: Vital Signs (12 hours) Temp Pulse Resp BP BP Pulse Ox 12/13/17 08:10 160/85 H 12/13/17 07:35 97.5 F L 69 18 160/85 H 98 12/13/17 04:00 97.5 F L 72 16 173/80 H 98 Weight Weight 200 lb 3.2 oz I&O: 12/12/17 12/13/17 12/14/17 06:59 06:59 06:59 Intake Total 420 1550 180 Output Total 1100 850 Balance -680 700 180 Result Diagrams: 12/11/17 05:04 12/12/17 05:36 Additional Labs: Accuchecks 12/13/17 12/13/17 12/12/17 10:58 05:23 20:06 POC Glucose 95 148 H 98 12/12/17 12/12/17 12/12/17 16:30 11:07 06:20 POC Glucose 185 H 193 H 150 H 12/11/17 05:55 POC Glucose 89 Phys Exam - Physical Examination Constitutional: NAD HEENT: PERRLA, moist MMs, sclera anicteric Neck: no JVD, supple Respiratory: no wheezing, no rales, no rhonchi Cardiovascular: RRR, no rub SM+ Gastrointestinal: soft, non-tender, no distention, positive bowel sounds Musculoskeletal: no edema, pulses present Neurological: non-focal, normal sensation, moves all 4 limbs Psychiatric: normal affect, A&O x 3 Skin: no rash, normal turgor Dx/Plan (1) Bradycardia Code(s): R00.1 - BRADYCARDIA, UNSPECIFIED Status: Resolved (2) Hypoglycemia associated with type 2 diabetes mellitus Code(s): E11.649 - TYPE 2 DIABETES MELLITUS WITH HYPOGLYCEMIA WITHOUT COMA Status: Resolved (3) Hypothermia Code(s): T68.XXXA - HYPOTHERMIA, INITIAL ENCOUNTER Status: Resolved (4) Anemia, normocytic normochromic Code(s): D64.9 - ANEMIA, UNSPECIFIED Status: Chronic (5) Anxiety and depression Code(s): F41.9 - ANXIETY DISORDER, UNSPECIFIED; F32.9 - MAJOR DEPRESSIVE DISORDER, SINGLE EPISODE, UNSPECIFIED Status: Chronic (6) CAD (coronary artery disease) Code(s): I25.10 - ATHSCL HEART DISEASE OF [place] CORONARY ARTERY W/O ANG PCTRS Status: Chronic Qualifiers: Coronary Disease-Associated Artery/Lesion type: bypass graft [place] vs. transplanted heart: [place] heart Associated angina: with unstable angina Qualified Code(s): I25.700 - Atherosclerosis of coronary artery bypass graft(s) , unspecified, with unstable angina pectoris (7) Dyslipidemia Code(s): E78.5 - HYPERLIPIDEMIA, UNSPECIFIED Status: Chronic (8) HTN (hypertension) Code(s): I10 - ESSENTIAL (PRIMARY) HYPERTENSION Status: Chronic Qualifiers: Hypertension type: essential hypertension Qualified Code(s): I10 - Essential (primary) hypertension (9) Obesity (BMI 30-39.9) Code(s): E66.9 - OBESITY, UNSPECIFIED Status: Chronic (10) Parkinson disease Code(s): G20 - PARKINSON'S DISEASE Status: Chronic (11) Diastolic dysfunction Code(s): I51.9 - HEART DISEASE, UNSPECIFIED Status: Acute (12) Moderate mitral regurgitation Code(s): I34.0 - NONRHEUMATIC MITRAL (VALVE) INSUFFICIENCY Status: Acute (13) Pulmonary hypertension Code(s): I27.20 - PULMONARY HYPERTENSION, UNSPECIFIED Status: Acute (14) Severe tricuspid regurgitation Code(s): I07.1 - RHEUMATIC TRICUSPID INSUFFICIENCY Status: Acute - Plan 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 * overall stable * nystatin powder application over affected area Review of Systems - Review of Systems ENT: negative: Ear Pain, Ear Discharge, Nose Pain, Nose Discharge, Nose Congestion, Mouth Pain, Mouth Swelling, Throat Pain, Throat Swelling, Other Respiratory: negative: Cough, Dry, Shortness of Breath, Hemoptysis, SOB with Excertion, Pleuritic Pain, Sputum, Wheezing Cardiovascular: negative: chest pain, palpitations, orthopnea, paroxysmal nocturnal dyspnea, edema, light headedness, other Gastrointestinal: negative: Nausea, Vomiting, Abdominal Pain, Diarrhea, Constipation, Melena, Hematochezia, Other Genitourinary: negative: Dysuria, Frequency, Incontinence, Hematuria, Retention , Other Musculoskeletal: negative: Neck Pain, Shoulder Pain, Arm Pain, Back Pain, Hand Pain, Leg Pain, Foot Pain, Other Skin: Rash. negative: Lesions, James, Bruising, Other - Medications/Allergies Allergies/Adverse Reactions: Allergies Allergy/AdvReac Type Severity Reaction Status Date / Time morphine Allergy Verified 09/09/17 00:50 Medications: Current Medications Acetaminophen (Tylenol) 650 mg PO Q4H PRN PRN Reason: Headache/Fever or Pain Last Admin: 12/11/17 16:15 Dose: 650 mg Al Hydroxide/Mg Hydroxide (Maalox) 30 ml PO Q6H PRN PRN Reason: Heartburn or Indigestion Albuterol/Ipratropium (Duoneb) 3 ml NEB [id number] PRN PRN Reason: SOB &/or Wheezing Aripiprazole (Abilify) 5 mg PO DAILY [facility] Last Admin: 12/13/17 08:11 Dose: 5 mg Artificial Tears (Tears Naturale) 0 drop EA EYE PRN PRN PRN Reason: Dry Eyes Aspirin (Ecotrin) 81 mg PO DAILY [facility] Last Admin: 12/13/17 08:12 Dose: 81 mg Atorvastatin Calcium (Lipitor) 80 mg PO HS [facility] Last Admin: 12/12/17 20:36 Dose: 80 mg Benzonatate (Tessalon) 100 mg PO Q4H PRN PRN Reason: Cough Bisacodyl (Dulcolax) 10 mg PO DAILYPRN PRN PRN Reason: Constipation Calcium Carbonate (Tums) 1,000 mg PO Q4H PRN PRN Reason: Heartburn or Indigestion Carbidopa/Levodopa (Sinemet 25-100) 2 tab PO TID [facility] Last Admin: 12/13/17 10:43 Dose: 2 tab Clonidine (Catapres) 0.1 mg PO Q4H PRN PRN Reason: Systolic BP > 160 Last Admin: 12/11/17 04:37 Dose: 0.1 mg Clopidogrel Bisulfate (Plavix) 75 mg PO DAILY [facility] Last Admin: 12/13/17 08:12 Dose: 75 mg Dextrose/Water (Dextrose 50%) 25 gm SLOW IVP PRN PRN PRN Reason: Hypoglycemia Docusate Sodium (Colace) 100 mg PO DAILY [facility] Last Admin: 12/13/17 08:12 Dose: 100 mg Enoxaparin Sodium (Lovenox) 40 mg SC 0900 [facility] Last Admin: 12/13/17 08:13 Dose: 40 mg Famotidine (Pepcid) 20 mg PO BID [facility] Last Admin: 12/13/17 08:12 Dose: 20 mg Fenofibrate (Tricor) 145 mg PO DAILY [facility] Last Admin: 12/13/17 08:11 Dose: 145 mg Glucagon (Glucagon) 1 mg IM PRN PRN PRN Reason: Hypoglycemia Guaifenesin (Robitussin Sf) 200 mg PO Q4H PRN PRN Reason: Cough Hydralazine HCl (Apresoline) 10 mg SLOW IVP Q4H PRN PRN Reason: Systolic BP > 170 Last Admin: 12/10/17 15:58 Dose: 10 mg Dextrose/Water (D5w) 1,000 mls @ 0 mls/hr IV .Q0M PRN PRN Reason: Hypoglycemia Insulin Human Lispro (Humalog) 0 units SC .MILD SLIDING SCALE PRN PRN Reason: Mild Correctional Scale Insulin Human Lispro (Humalog) 0 units SC .BEDTIME SLIDING SC PRN PRN Reason: Bedtime Correctional Scale Insulin Human Lispro (Humalog) 10 units SC DAILY[facility] Last Admin: 12/13/17 08:10 Dose: 10 unit Insulin Human Lispro (Humalog) 10 units SC 1730 [facility] Last Admin: 12/12/17 17:12 Dose: 10 unit Isosorbide Mononitrate (Imdur) 120 mg PO DAILY [facility] Last Admin: 12/13/17 08:12 Dose: 120 mg Levothyroxine Sodium (Synthroid) 75 mcg PO 0600 [facility] Last Admin: 12/13/17 05:33 Dose: 75 mcg Lisinopril (Zestril) 20 mg PO BID [facility] Last Admin: 12/13/17 08:10 Dose: 20 mg Loperamide HCl (Imodium) 2 mg PO PRN PRN PRN Reason: Diarrhea/Loose Stools Loratadine (Claritin) 10 mg PO DAILYPRN PRN PRN Reason: Sinus Symptoms Metoprolol Tartrate (Lopressor) 50 mg PO BID [facility] Last Admin: 12/13/17 08:13 Dose: 50 mg Mineral Oil/White Petrolatum (Eucerin Cream) 0 gm TOP BIDPRN PRN PRN Reason: Dry Skin Nitroglycerin (Nitrostat) 0.4 mg SL Q5MIN PRN PRN Reason: Chest Pain Ondansetron HCl (Zofran) 4 mg IVP Q6H PRN PRN Reason: Nausea/Vomiting Ondansetron HCl (Zofran Odt) 4 mg PO Q6H PRN PRN Reason: Nausea/Vomiting Pantoprazole Sodium (Protonix) 40 mg PO DAILY [facility] Last Admin: 12/13/17 08:13 Dose: 40 mg Phenol (Chloraseptic [place] 180 Ml Bot) 0 ml PO PRN PRN PRN Reason: Sore Throat Potassium Chloride (Klor-Con 10) 10 meq PO DAILY [facility] Last Admin: 12/13/17 08:12 Dose: 10 meq Ranolazine (Ranexa) 1,000 mg PO BID [facility] Last Admin: 12/13/17 08:11 Dose: 1,000 mg Senna (Senokot) 2 tab PO HSPRN PRN PRN Reason: Constipation Sodium Chloride (Flush - Normal Saline) 10 ml IVF Q12HR [facility] Last Admin: 12/13/17 08:13 Dose: 10 ml Sodium Chloride (Flush - Normal Saline) 10 ml IVF PRN PRN PRN Reason: Saline Flush Last Admin: 12/10/17 16:05 Dose: 10 ml Temazepam (Restoril) 15 mg PO HSPRN PRN PRN Reason: Insomnia Tramadol HCl (Ultram) 50 mg PO Q4H PRN PRN Reason: Moderate Pain (4-6) Last Admin: 12/11/17 04:36 Dose: 50 mg Trihexyphenidyl HCl (Artane) 2 mg PO BID [facility] Last Admin: 12/13/17 09:30 Dose: Not Given Venlafaxine HCl (Effexor Xr) 300 mg PO DAILY [facility] Last Admin: 12/13/17 10:43 Dose: 300 mg
[2017-12-13] MEDS: Atorvastatin Calcium 40 MG TAB PO SCH (21:18)
[2017-12-14] MEDS: Levothyroxine Sodium 75 MCG TAB PO SCH (06:17)
[2017-12-14] MEDS: Aspirin 81 mg Enteric Coated Tablet PO SCH (08:36)
[2017-12-14] MEDS: Clopidogrel Bisulfate 75 MG TAB PO SCH (08:37)
[2017-12-14] MEDS: Docusate 100 MG CAP PO SCH (08:37)
[2017-12-14] MEDS: Metoprolol Tartrate 50 MG TAB PO SCH ×2 (08:37→20:35)
[2017-12-14] MEDS: Fenofibrate Nanocrystallized 145 MG TAB PO SCH (08:37)
[2017-12-14] MEDS: Famotidine 20 MG TAB PO SCH ×2 (08:37→20:35)
[2017-12-14] MEDS: Lisinopril 20 MG TAB PO SCH ×2 (08:37→20:36)
[2017-12-14] MEDS: Potassium Chloride 10 MEQ TAB PO SCH (08:38)
[2017-12-14] MEDS: Aripiprazole 10 MG TAB PO SCH (08:38)
[2017-12-14] MEDS: Enoxaparin Sodium 40 MG/0.4 ML SYRINGE SC SCH (08:38)
[2017-12-14] MEDS: HumaLOG 300 UNITS/3 ML VIAL SC SCH ×2 (08:39→18:23)
--- NOTE | 2017-12-14 09:43 | PDOC.PN ---
- Subjective Encounter Start Date: 12/14/17 Encounter Start Time: 06:50 Patient seen and examined. No new complaints. No overnight events - Objective Resuscitation Status: Resuscitation Status FULL:Full Resuscitation Vital Signs & Weight: Vital Signs (12 hours) Temp Pulse Resp BP BP Pulse Ox 12/14/17 08:37 139/70 12/14/17 07:55 98.2 F 67 16 139/70 97 Weight Weight 200 lb 3.2 oz I&O: 12/13/17 12/14/17 12/15/17 06:59 06:59 06:59 Intake Total 1550 1830 180 Output Total 850 Balance 700 1830 180 Result Diagrams: 12/11/17 05:04 12/12/17 05:36 Additional Labs: Accuchecks 12/14/17 12/13/17 12/13/17 04:15 20:43 16:02 POC Glucose 131 H 91 166 H 12/13/17 10:58 POC Glucose 95 Phys Exam - Physical Examination Constitutional: NAD HEENT: PERRLA, moist MMs, sclera anicteric Neck: no JVD, supple Respiratory: no wheezing, no rales, no rhonchi Cardiovascular: RRR, no significant murmur, no rub Gastrointestinal: soft, non-tender, no distention, positive bowel sounds Musculoskeletal: no edema, pulses present Neurological: non-focal, normal sensation Lymphatic: no nodes Psychiatric: normal affect Skin: no rash, normal turgor Dx/Plan (1) Bradycardia Code(s): R00.1 - BRADYCARDIA, UNSPECIFIED Status: Resolved (2) Hypoglycemia associated with type 2 diabetes mellitus Code(s): E11.649 - TYPE 2 DIABETES MELLITUS WITH HYPOGLYCEMIA WITHOUT COMA Status: Resolved (3) Hypothermia Code(s): T68.XXXA - HYPOTHERMIA, INITIAL ENCOUNTER Status: Resolved (4) Anemia, normocytic normochromic Code(s): D64.9 - ANEMIA, UNSPECIFIED Status: Chronic (5) Anxiety and depression Code(s): F41.9 - ANXIETY DISORDER, UNSPECIFIED; F32.9 - MAJOR DEPRESSIVE DISORDER, SINGLE EPISODE, UNSPECIFIED Status: Chronic (6) CAD (coronary artery disease) Code(s): I25.10 - ATHSCL HEART DISEASE OF [place] CORONARY ARTERY W/O ANG PCTRS Status: Chronic Qualifiers: Coronary Disease-Associated Artery/Lesion type: bypass graft [place] vs. transplanted heart: [place] heart Associated angina: with unstable angina Qualified Code(s): I25.700 - Atherosclerosis of coronary artery bypass graft(s) , unspecified, with unstable angina pectoris (7) Dyslipidemia Code(s): E78.5 - HYPERLIPIDEMIA, UNSPECIFIED Status: Chronic (8) HTN (hypertension) Code(s): I10 - ESSENTIAL (PRIMARY) HYPERTENSION Status: Chronic Qualifiers: Hypertension type: essential hypertension Qualified Code(s): I10 - Essential (primary) hypertension (9) Obesity (BMI 30-39.9) Code(s): E66.9 - OBESITY, UNSPECIFIED Status: Chronic (10) Parkinson disease Code(s): G20 - PARKINSON'S DISEASE Status: Chronic (11) Diastolic dysfunction Code(s): I51.9 - HEART DISEASE, UNSPECIFIED Status: Acute (12) Moderate mitral regurgitation Code(s): I34.0 - NONRHEUMATIC MITRAL (VALVE) INSUFFICIENCY Status: Acute (13) Pulmonary hypertension Code(s): I27.20 - PULMONARY HYPERTENSION, UNSPECIFIED Status: Acute (14) Severe tricuspid regurgitation Code(s): I07.1 - RHEUMATIC TRICUSPID INSUFFICIENCY Status: Acute - Plan cont current plan of care * medication reviewed as below * symptomatic treatment * will update plan to family * await placement. Review of Systems - Review of Systems ENT: negative: Ear Pain, Ear Discharge, Nose Pain, Nose Discharge, Nose Congestion, Mouth Pain, Mouth Swelling, Throat Pain, Throat Swelling, Other Respiratory: negative: Cough, Dry, Shortness of Breath, Hemoptysis, SOB with Excertion, Pleuritic Pain, Sputum, Wheezing Cardiovascular: negative: chest pain, palpitations, orthopnea, paroxysmal nocturnal dyspnea, edema, light headedness, other Gastrointestinal: negative: Nausea, Vomiting, Abdominal Pain, Diarrhea, Constipation, Melena, Hematochezia, Other Genitourinary: negative: Dysuria, Frequency, Incontinence, Hematuria, Retention , Other Musculoskeletal: negative: Neck Pain, Shoulder Pain, Arm Pain, Back Pain, Hand Pain, Leg Pain, Foot Pain, Other Skin: negative: Rash, Lesions, James, Bruising, Other - Medications/Allergies Allergies/Adverse Reactions: Allergies Allergy/AdvReac Type Severity Reaction Status Date / Time morphine Allergy Verified 09/09/17 00:50 Medications: Current Medications Acetaminophen (Tylenol) 650 mg PO Q4H PRN PRN Reason: Headache/Fever or Pain Last Admin: 12/11/17 16:15 Dose: 650 mg Al Hydroxide/Mg Hydroxide (Maalox) 30 ml PO Q6H PRN PRN Reason: Heartburn or Indigestion Albuterol/Ipratropium (Duoneb) 3 ml NEB [id number] PRN PRN Reason: SOB &/or Wheezing Aripiprazole (Abilify) 5 mg PO DAILY [facility] Last Admin: 12/14/17 08:38 Dose: 5 mg Artificial Tears (Tears Naturale) 0 drop EA EYE PRN PRN PRN Reason: Dry Eyes Aspirin (Ecotrin) 81 mg PO DAILY [facility] Last Admin: 12/14/17 08:36 Dose: 81 mg Atorvastatin Calcium (Lipitor) 80 mg PO HS [facility] Last Admin: 12/13/17 21:18 Dose: 80 mg Benzonatate (Tessalon) 100 mg PO Q4H PRN PRN Reason: Cough Bisacodyl (Dulcolax) 10 mg PO DAILYPRN PRN PRN Reason: Constipation Calcium Carbonate (Tums) 1,000 mg PO Q4H PRN PRN Reason: Heartburn or Indigestion Carbidopa/Levodopa (Sinemet 25-100) 2 tab PO TID [facility] Last Admin: 12/13/17 21:19 Dose: 2 tab Clonidine (Catapres) 0.1 mg PO Q4H PRN PRN Reason: Systolic BP > 160 Last Admin: 12/11/17 04:37 Dose: 0.1 mg Clopidogrel Bisulfate (Plavix) 75 mg PO DAILY [facility] Last Admin: 12/14/17 08:37 Dose: 75 mg Dextrose/Water (Dextrose 50%) 25 gm SLOW IVP PRN PRN PRN Reason: Hypoglycemia Docusate Sodium (Colace) 100 mg PO DAILY [facility] Last Admin: 12/14/17 08:37 Dose: 100 mg Enoxaparin Sodium (Lovenox) 40 mg SC 0900 [facility] Last Admin: 12/14/17 08:38 Dose: 40 mg Famotidine (Pepcid) 20 mg PO BID [facility] Last Admin: 12/14/17 08:37 Dose: 20 mg Fenofibrate (Tricor) 145 mg PO DAILY [facility] Last Admin: 12/14/17 08:37 Dose: 145 mg Glucagon (Glucagon) 1 mg IM PRN PRN PRN Reason: Hypoglycemia Guaifenesin (Robitussin Sf) 200 mg PO Q4H PRN PRN Reason: Cough Hydralazine HCl (Apresoline) 10 mg SLOW IVP Q4H PRN PRN Reason: Systolic BP > 170 Last Admin: 12/10/17 15:58 Dose: 10 mg Dextrose/Water (D5w) 1,000 mls @ 0 mls/hr IV .Q0M PRN PRN Reason: Hypoglycemia Insulin Human Lispro (Humalog) 0 units SC .MILD SLIDING SCALE PRN PRN Reason: Mild Correctional Scale Insulin Human Lispro (Humalog) 0 units SC .BEDTIME SLIDING SC PRN PRN Reason: Bedtime Correctional Scale Insulin Human Lispro (Humalog) 10 units SC DAILY-[facility] Last Admin: 12/14/17 08:39 Dose: 10 unit Insulin Human Lispro (Humalog) 10 units SC 1730 [facility] Last Admin: 12/13/17 17:01 Dose: 10 unit Isosorbide Mononitrate (Imdur) 120 mg PO DAILY [facility] Last Admin: 12/14/17 08:37 Dose: 120 mg Levothyroxine Sodium (Synthroid) 75 mcg PO 0600 [facility] Last Admin: 12/14/17 06:17 Dose: 75 mcg Lisinopril (Zestril) 20 mg PO BID [facility] Last Admin: 12/14/17 08:37 Dose: 20 mg Loperamide HCl (Imodium) 2 mg PO PRN PRN PRN Reason: Diarrhea/Loose Stools Loratadine (Claritin) 10 mg PO DAILYPRN PRN PRN Reason: Sinus Symptoms Metoprolol Tartrate (Lopressor) 50 mg PO BID [facility] Last Admin: 12/14/17 08:37 Dose: 50 mg Mineral Oil/White Petrolatum (Eucerin Cream) 0 gm TOP BIDPRN PRN PRN Reason: Dry Skin Nitroglycerin (Nitrostat) 0.4 mg SL Q5MIN PRN PRN Reason: Chest Pain Trihexyphenidyl Hcl (2 Mg Tab) 0 each PO BID [facility] Last Admin: 12/14/17 08:36 Dose: 1 each Ondansetron HCl (Zofran) 4 mg IVP Q6H PRN PRN Reason: Nausea/Vomiting Ondansetron HCl (Zofran Odt) 4 mg PO Q6H PRN PRN Reason: Nausea/Vomiting Pantoprazole Sodium (Protonix) 40 mg PO DAILY [facility] Last Admin: 12/14/17 08:37 Dose: 40 mg Phenol (Chloraseptic [place] 180 Ml Bot) 0 ml PO PRN PRN PRN Reason: Sore Throat Potassium Chloride (Klor-Con 10) 10 meq PO DAILY [facility] Last Admin: 12/14/17 08:38 Dose: 10 meq Ranolazine (Ranexa) 1,000 mg PO BID [facility] Last Admin: 12/14/17 08:38 Dose: 1,000 mg Senna (Senokot) 2 tab PO HSPRN PRN PRN Reason: Constipation Sodium Chloride (Flush - Normal Saline) 10 ml IVF Q12HR [facility] Last Admin: 12/13/17 21:21 Dose: 10 ml Sodium Chloride (Flush - Normal Saline) 10 ml IVF PRN PRN PRN Reason: Saline Flush Last Admin: 12/10/17 16:05 Dose: 10 ml Temazepam (Restoril) 15 mg PO HSPRN PRN PRN Reason: Insomnia Tramadol HCl (Ultram) 50 mg PO Q4H PRN PRN Reason: Moderate Pain (4-6) Last Admin: 12/11/17 04:36 Dose: 50 mg Venlafaxine HCl (Effexor Xr) 300 mg PO DAILY [facility] Last Admin: 12/13/17 10:43 Dose: 300 mg
[2017-12-14] MEDS: Venlafaxine HCl XR 150 MG CAP PO SCH (10:13)
[2017-12-14] MEDS: Carbidopa/Levodopa 25-100 mg Tablet PO SCH ×3 (10:13→20:36)
[2017-12-14] MEDS: Atorvastatin Calcium 40 MG TAB PO SCH (20:35)
[2017-12-15] MEDS: Levothyroxine Sodium 75 MCG TAB PO SCH (06:05)
[2017-12-15] MEDS: Docusate 100 MG CAP PO SCH (08:23)
[2017-12-15] MEDS: Aspirin 81 mg Enteric Coated Tablet PO SCH (08:24)
[2017-12-15] MEDS: Lisinopril 20 MG TAB PO SCH (08:24)
[2017-12-15] MEDS: Aripiprazole 10 MG TAB PO SCH (08:24)
[2017-12-15] MEDS: Metoprolol Tartrate 50 MG TAB PO SCH (08:29)
[2017-12-15] MEDS: Fenofibrate Nanocrystallized 145 MG TAB PO SCH (08:29)
[2017-12-15] MEDS: Carbidopa/Levodopa 25-100 mg Tablet PO SCH (08:29)
[2017-12-15] MEDS: Clopidogrel Bisulfate 75 MG TAB PO SCH (08:29)
[2017-12-15] MEDS: Potassium Chloride 10 MEQ TAB PO SCH (08:29)
[2017-12-15] MEDS: Famotidine 20 MG TAB PO SCH (08:30)
[2017-12-15] MEDS: Enoxaparin Sodium 40 MG/0.4 ML SYRINGE SC SCH (08:30)
[2017-12-15] MEDS: HumaLOG 300 UNITS/3 ML VIAL SC SCH (08:31)
[2017-12-15] MEDS ORDERED: Trihexyphenidyl 2 MG TAB PO SCH (09:00)
[2017-12-15] MEDS: Venlafaxine HCl XR 150 MG CAP PO SCH (09:47)
--- NOTE | 2017-12-15 12:46 | DIS ---
DATE OF ADMISSION: 12/10/2017 DATE OF DISCHARGE: 12/15/2017 PRIMARY CARE PHYSICIAN: Dr. Diogo Chand. DISCHARGE DISPOSITION: detention home. PRIMARY DISCHARGE DIAGNOSES: Hypoglycemia associated with diabetes type 2, hypothermia due to proble m #1, bradycardia due to problem #2. SECONDARY DISCHARGE DIAGNOSES: Diastolic dysfunction, moderate mitral valve regurgitation, pulmonary hypertension, severe tricuspid regurgitation, normocytic normochromic anemia, anxiety and depression , coronary artery disease, hypertension, dyslipidemia, obesity with BMI 33, Parkinson's disease. PRIMARY PROCEDURES AND OPERATIONS: None. RADIOLOGICAL INVESTIGATION: CT brain negative for any acute intracranial process. Chest x-ray negat heath for any acute process. CT angiography negative for PE. Echocardiography showed diastolic dysfun ction, moderate mitral regurgitation, and severe tricuspid regurgitation. SIGNIFICANT LABORATORY DATA: WBC 7.9, hemoglobin 10.2, platelet 267. Sodium 136, potassium 4.2, BUN 22, creatinine 0.83, calcium 9.5. TSH 2.44. Urinalysis unremarkable. DISCHARGE MEDICATIONS: Abilify 5 mg p.o. daily, Lipitor 80 mg p.o. daily, carbidopa/levodopa 25/100 two tablets p.o. t.i.d., Plavix 75 mg p.o. daily, TriCor 145 mg p.o. daily, Humalog insulin as per sl iding scale per protocol, Lamotrigine XR 200 mg p.o. daily, Synthroid 75 mcg p.o. daily, metformin 50 0 mg in the evening and 1000 mg in the morning, metoprolol 100 mg p.o. b.i.d., Protonix 40 mg p.o. da imelda, potassium chloride 10 mEq p.o. daily, Ranexa 1000 mg p.o. b.i.d., Artane 2 mg p.o. t.i.d., Effex or XR 300 mg p.o. daily, aspirin 81 mg p.o. daily, Colace 100 mg p.o. daily, hydrochlorothiazide 25 m g p.o. daily, Imdur 120 mg p.o. daily, lisinopril 20 mg b.i.d. CONTRAINDICATIONS: None. CODE STATUS: FULL CODE. INPATIENT CONSULTANTS: None. ALLERGIES: MORPHINE. DISCHARGE PLAN: Post hospital, the patient will follow up with primary care physician. HOSPITAL COURSE: A 67-year-old female who was admitted by Dr. Valentina Manzo. Please see her H&P for further details. The patient was admitted to the hospital for altered mental status. CT brain was normal. She had hypoglycemia and because of hypoglycemia, she had hypothermia that was causing her s inus bradycardia. Patient was not able to manage her diabetes at an assisted living facility. The p atient was admitted to telemetry floor. She was observed for a couple of days on the telemetry floor . She had elevated BNP and that is why we did echocardiography, which showed diastolic dysfunction a nd severe tricuspid regurgitation and moderate mitral regurgitation. She was not having any CHF whil e in hospital. The patient was transferred to medical floor. The patient's family member requesting her placement to residential home. With help of heel caser, we arranged a residential [facility] e. The patient is overall doing very well. The patient is seen and examined at bedside today. All review of system reviewed with her and negati ve. Plan of care discussed with the family member as well. Paper work for discharge done. Discharg e medication reconciliation done. PHYSICAL EXAMINATION: VITAL SIGNS: Today, the patient's temperature 97.8, pulse 62, respiratory rate 18, saturation 98% on room air, blood pressure 175/83, weight 200 pounds. GENERAL: The patient is currently alert, awake, no obvious acute distress. HEAD: Normocephalic, atraumatic. EYES: Pupils round, reactive to light. Extraocular muscle intact. ENT: Oropharynx within normal limits. Moist mucous membrane, no oral lesion, no pharyngeal erythema , no exudate. NECK: Supple, no JVD, no thyromegaly, no carotid bruit. LUNGS: Clear to auscultation without any rhonchi or rales. CARDIAC: S1, S2 regular without any murmur. ABDOMEN: Soft and benign. Obesity present. EXTREMITIES: No edema. NEUROLOGIC: Nonfocal examination. To prevent recurrent hypoglycemia, we have discontinued her scheduled insulin, only we are continuing metformin and the patient will have sliding scale insulin at the alf. The patient is medically stable for discharge today. Total time spent on discharge day 31 minutes.
[2017-12-15 13:33] VITALS: BP 132/83; TEMP 97.6
== END 2017-12-15 12:44 | DRG 639 ==
LOC: ERS 07:44 → 2NO 13:48 → T4-B 12-13 07:34
PROVIDERS: ADMIT Internal Medicine; ATTEND Internal Medicine
DX: E11.649 Type 2 diabetes mellitus with hypoglycemia without coma (principal); E66.9 Obesity, unspecified; T38.3X5A Adverse effect of insulin and oral hypoglycemic [antidiabetic] drugs, initial encounter; I25.10 Atherosclerotic heart disease of native coronary artery without angina pectoris; E78.5 Hyperlipidemia, unspecified; T68.XXXA Hypothermia, initial encounter; R00.1 Bradycardia, unspecified; E03.9 Hypothyroidism, unspecified; J45.909 Unspecified asthma, uncomplicated; G43.909 Migraine, unspecified, not intractable, without status migrainosus; F31.9 Bipolar disorder, unspecified; I27.20 Pulmonary hypertension, unspecified; I08.1 Rheumatic disorders of both mitral and tricuspid valves; I10 Essential (primary) hypertension; D64.9 Anemia, unspecified; F41.9 Anxiety disorder, unspecified; Z68.33 Body mass index [BMI] 33.0-33.9, adult; G20 Parkinson's disease; Z95.1 Presence of aortocoronary bypass graft; Z95.5 Presence of coronary angioplasty implant and graft
CPT/HCPCS: 36415; 36416; 51702; 70450; 71045; 71275; 80048; 80053; 81003; 81015; 82553; 83880; 84443; 84484; 85025; 93005; 93306; 96361; 96374; A4216; G8978-GP-CK; G8979-GP-CJ; G8987-GO-CH; G8988-GO-CH; G8989-GO-CH; J0360; J1650; J1940